=== PATIENT | male | born 1985 | race Caucasian/White ===

== ENCOUNTER 2016-12-02 16:57 | Emergency (ER) | payer OTHER ==
[2016-12-02] MEDS ORDERED: TORAdol 30 mg Injection IM ONE (17:58)
[2016-12-02] MEDS ORDERED: TORAdol 30 mg Injection ONE (17:59)
--- NOTE | 2016-12-02 18:02 | ERPHSYRPT ---
- History of Present Illness Time Seen by Provider: 12/02/16 17:20 Source: patient, family Exam Limitations: other (mental challenged) Patient Subjective Stated Complaint: PT STATES THIS MORNING HE BEGAN HAVING PAIN IN HIS RIGHT LOWER MOUTH FROM A TOOTH. Triage Nursing Assessment: PT PINK, WARM, DRY. DENTAL CARIES NOTED TO RIGHT LOWER MOUTH. Timing/Duration: gradual onset Severity: moderate ENT Location: mouth, dental Prearrival Treatment: over the counter meds Modifying Factors: Improves With: activity Associated Symptoms: denies symptoms Allergies/Adverse Reactions: No Known Drug Allergies Allergy (Verified 12/02/16 17:10) Home Medications: Lisinopril 10 mg [Zestril 10 MG] 10 mg PO DAILY 12/02/16 [History] Meloxicam 7.5 mg [Mobic 7.5 MG] 7.5 mg PO DAILY 12/02/16 [History] Hx Tetanus, Diphtheria Vaccination/Date Given: Yes (UP TO DATE) Hx Influenza Vaccination/Date Given: No Hx Pneumococcal Vaccination/Date Given: No Immunizations Up to Date: Yes - Review of Systems Constitutional: No Symptoms Eyes: No Symptoms Ears, Nose, & Throat: Mouth Pain (right lower molar) Respiratory: No Symptoms Cardiac: No Symptoms Abdominal/Gastrointestinal: No Symptoms Musculoskeletal: No Symptoms Skin: No Symptoms Neurological: No Symptoms Psychological: No Symptoms Endocrine: No Symptoms Hematologic/Lymphatic: No Symptoms Immunological/Allergic: No Symptoms - Past Medical History Pertinent Past Medical History: Yes Neurological History: TIA ENT History: No Pertinent History Cardiac History: Hypertension Respiratory History: No Pertinent History Endocrine Medical History: No Pertinent History Musculoskeletal History: No Pertinent History GI Medical History: No Pertinent History History: No Pertinent History Psycho-Social History: Other Male Reproductive Disorders: No Pertinent History Other Medical History: OVERDOSE - Past Surgical History Past Surgical History: Yes Neuro Surgical History: No Pertinent History Cardiac: No Pertinent History Respiratory: No Pertinent History Gastrointestinal: No Pertinent History Genitourinary: No Pertinent History Musculoskeletal: Orthopedic Surgery Male Surgical History: No Pertinent History Other Surgical History: LEFT FOOT. EARS - Social History Smoking Status: Current every day smoker How long have you smoked: 6 Exposure to second hand smoke: Yes Drug Use: none Patient Lives Alone: No - Nursing Vital Signs Nursing Vital Signs: Initial Vital Signs Temperature 98.3 F Temperature Source Oral Pulse Rate 80 Respiratory Rate 18 Blood Pressure 155/89 Pain Intensity 8 - Physical Exam General Appearance: mild distress, other (Pt. appears under the influence of drugs which impair his speech.) Eye Exam: bilateral eye: normal inspection, PERRL, EOMI Ear Exam: bilateral ear: auricle normal, canal normal, TM normal Nasal Exam: normal inspection Throat Exam: pharynx normal, dental tenderness (right lower molar necrosis) Neck Exam: normal inspection, non-tender, supple, full range of motion Cardiovascular/Respiratory Exam: chest non-tender, normal breath sounds, regular rate/rhythm, heart sounds normal Abdominal Exam: non-tender, soft, no organomegaly Neurologic Exam: alert, intoxicated appearance Skin Exam: normal color, warm, dry SpO2 Interpretation: normal SpO2: 100 Oxygen Delivery: Room Air - Course Nursing assessment & vital signs reviewed: Yes - Progress Progress: improved Counseled pt/family regarding: need for follow-up (with dentisit 1 week) - Departure Time of Disposition: 18:00 Departure Disposition: Home Clinical Impression: Necrosis of dental pulp Condition: Stable Critical Care Time: No
[2016-12-02 18:15] VITALS: BP 142/82; PULSE 78; O2SAT 98
== END 2016-12-02 18:15 | disposition home or self-care (01) ==
LOC: ED 16:57
DX: K04.1 Necrosis of pulp (principal)
CPT/HCPCS: 96372; 99282; J1885

== ENCOUNTER 2017-06-24 06:59 | Emergency (ER) | payer OTHER ==
[2017-06-24] MEDS ORDERED: TORAdol 30 mg Injection IM ONE (07:19)
[2017-06-24] MEDS ORDERED: Norflex 60 MG/2 ML IM ONE (07:19)
--- NOTE | 2017-06-24 07:25 | ERPHSYRPT ---
- History of Present Illness Time Seen by Provider: 06/24/17 07:10 Source: patient, family Exam Limitations: no limitations Patient Subjective Stated Complaint: lower back pain for two weeks Triage Nursing Assessment: ambulated to room per self. ambulating slowly. skin w/d, color normal, resp easy. 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; no falls or trauma; no prior hx; no change in bowel movements or urination; no radiation; no paresthesias; no known exposure; no travel; otherwise healthy; no other complaints; no fever Timing/Duration: today (worse), week(s) (2), worse Method of Injury: lifting Quality: aching Back Pain Location: T-spine (lower), lumbar spine (upper), paraspinous muscles ( middle) Severity of Pain-Max: severe Severity of Pain-Current: moderate Modifying Factors: Improves With: immobilization (helps), movement (aggravates) , pain medication (help slightly) Associated Symptoms: lower back pain (upper part), muscle spasms Previous symptoms: no prior history Allergies/Adverse Reactions: No Known Drug Allergies Allergy (Verified 06/24/17 07:09) Hx Tetanus, Diphtheria Vaccination/Date Given: No Hx Influenza Vaccination/Date Given: No Hx Pneumococcal Vaccination/Date Given: No Immunizations Up to Date: No - Review of Systems Constitutional: No Symptoms Eyes: No Symptoms Ears, Nose, & Throat: No Symptoms Respiratory: No Cough, No Cyanosis, No Dyspnea, No Wheezing Cardiac: No Chest Pain, No Palpitations, No Syncope Abdominal/Gastrointestinal: No Abdominal Pain, No Nausea, No Vomiting, No Diarrhea Genitourinary Symptoms: No Symptoms Musculoskeletal: Back Pain, No Neck Pain, No Fall, No Injury (unknown) Skin: No Symptoms Neurological: No Symptoms Psychological: No Symptoms Endocrine: No Symptoms Hematologic/Lymphatic: No Symptoms Immunological/Allergic: No Symptoms - Past Medical History Pertinent Past Medical History: Yes Neurological History: TIA ENT History: No Pertinent History Cardiac History: Hypertension Respiratory History: No Pertinent History Endocrine Medical History: No Pertinent History Musculoskeletal History: No Pertinent History GI Medical History: No Pertinent History History: No Pertinent History Psycho-Social History: Other Male Reproductive Disorders: No Pertinent History Other Medical History: OVERDOSE - Past Surgical History Past Surgical History: Yes Neuro Surgical History: No Pertinent History Cardiac: No Pertinent History Respiratory: No Pertinent History Gastrointestinal: No Pertinent History Genitourinary: No Pertinent History Musculoskeletal: Orthopedic Surgery Male Surgical History: No Pertinent History Other Surgical History: LEFT FOOT. EARS - Social History Smoking Status: Current every day smoker How long have you smoked: 8 Exposure to second hand smoke: No Alcohol Use: Socially Drug Use: none Patient Lives Alone: No - Nursing Vital Signs Nursing Vital Signs: Initial Vital Signs Temperature 99.1 F 06/24/17 07:05 Pulse Rate 82 06/24/17 07:05 Respiratory Rate 16 06/24/17 07:05 Blood Pressure 154/94 06/24/17 07:05 O2 Sat by Pulse Oximetry 100 06/24/17 07:05 Pain Scale Pain Intensity 4 - Physical Exam General Appearance: moderate distress (back pain), alert, thin Eye Exam: PERRL/EOMI, eyes nml inspection, No photophobia Ears, Nose, Throat Exam: normal ENT inspection, TMs normal, pharynx normal, moist mucous membranes Neck Exam: normal inspection, non-tender, supple, full range of motion, No meningismus, No JVD, No limited range of motion Respiratory Exam: normal breath sounds, lungs clear, airway intact, No chest tenderness, No respiratory distress, No wheezing Cardiovascular Exam: regular rate/rhythm, normal heart sounds, normal peripheral pulses, murmur, capillary refill <2 sec Gastrointestinal Exam: soft, normal bowel sounds, No tenderness, No guarding, No pulsatile mass, No rebound, No organomegaly Rectal Exam: deferred Back Exam: normal inspection, normal range of motion (discomfort with flexion), vertebral tenderness (T 10 through L2 midline), muscle spasm (middle), point tenderness (T10-L2), No CVA tenderness, No rash Extremity Exam: normal inspection, normal range of motion, other (straight leg raising bilateral without pain), No cali's sign, No pedal edema Peripheral Pulses: carotid (R): 4+, carotid (L): 4+, femoral (R): 4+, femoral (L ): 4+, dorsalis-pedis (R): 3+, dorsalis-pedis (L): 3+ Neurologic Exam: alert, oriented x 3, cooperative, 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, normal mood/affect, nml cerebellar function, nml station & gait, sensation nml Skin Exam: normal color, warm, dry, No rash SpO2 Interpretation: normal SpO2: 100 Oxygen Delivery: Room Air - Course Nursing assessment & vital signs reviewed: Yes - Radiology Exams T-Spine X-ray Interpretation: Interpreted by me, Negative, No Fracture L-Spine X-ray Interpretation: Interpreted by me, Negative, No Fracture Ordered Tests: Active Orders 24 hr Category Date Time Status LUMBAR COMPLETE (MIN 4 VIEWS) Stat Exams 06/24/17 07:19 Taken THORACIC SPINE (AP,LAT,SWIMM) Stat Exams 06/24/17 07:20 Taken Medication Summary Discontinued Medications Generic Name Dose Route Start Last Admin Trade Name Danica PRN Reason Stop Dose Admin Ketorolac Tromethamine 60 mg 06/24/17 07:19 06/24/17 07:36 Toradol 30 Mg Injection IM 06/24/17 07:20 60 mg STAT ONE Administration Ketorolac Tromethamine Confirm 06/24/17 07:35 Toradol 30 Mg Injection Administered 06/24/17 07:36 Dose 60 mg .ROUTE .STK-MED ONE Orphenadrine Citrate 60 mg 06/24/17 07:19 06/24/17 07:36 Norflex 60 Mg/2 Ml IM 06/24/17 07:20 60 mg STAT ONE Administration Orphenadrine Citrate Confirm 06/24/17 07:35 Norflex 60 Mg/2 Ml Administered 06/24/17 07:36 Dose 60 mg .ROUTE .STK-MED ONE - Progress Progress: improved (after meds), re-examined (after x-ray and medicati) Progress Note: 06/24/17 07:25 family at bedside; pain medicine given; x-ray pending; will recheck treatment plan discussed 06/24/17 07:53 rechecked - meds just given; xr done; results pending; will recheck ; family at bedside 06/24/17 08:09 rechecked; pain now 4/6 and improving; treatment plan and instructions given Counseled pt/family regarding: diagnosis, need for follow-up, rad results, smoking cessation - Departure Time of Disposition: 08:10 Departure Disposition: Home Clinical Impression: Back strain Condition: Stable Critical Care Time: No Critical Care Time(excluding separately billable procedures): 30-74 minutes Instructions: Low Back Pain Additional Instructions: rest; no heavy lifting or straining 48 hours; follow up lmd recheck take meds Back pain instructions. Rest, ice x 24-48 hours, then warm compresses; no heavy lifting (>20#'s) x 3-5 days; call [facility] or [facility] Med doctor in am for follow up appointment and or referral as needed. Return if problems. Take meds as prescribed. Follow-up with family doctor as directed. Call for appointment. Return if any problems. If you smoke please stop. Call or follow up with your family doctor for assistance if you need it to stop. Please wear your seatbelt when driving. Have a nice day. Thank you for allowing us to participate in your care today. :o) Dr Johnny Ag Prescriptions: Chlorzoxazone [Parafon Forte Dsc] 500 mg PO QID #20 tablet Naproxen Sodium [Anaprox Ds] 550 mg PO TID #14 tablet
[2017-06-24] MEDS ORDERED: TORAdol 30 mg Injection ONE (07:35)
[2017-06-24] MEDS ORDERED: Norflex 60 MG/2 ML ONE (07:35)
[2017-06-24 08:28] VITALS: BP 146/90; PULSE 68; O2SAT 97
--- NOTE | 2017-06-24 09:00 | XRAY ---
Indication: Back pain. Comparison: December 01, 2016. 5 views of the lumbar spine demonstrates 6 lumbar segments with sacralized L6, mild L5-L6, and mild bilateral L5-L6 degenerative facet arthropathy. Negative for acute fracture, subluxation, or pars interarticularis defect.
--- NOTE | 2017-06-24 09:03 | XRAY ---
Indication: Back pain. Muscle spasms. Comparison: None Frontal/lateral thoracic spine demonstrates 12 typical rib-bearing thoracic vertebral segments with minimal levoscoliosis centered at T10. No other bony, articular, or soft tissue abnormalities.
== END 2017-06-24 08:27 | disposition home or self-care (01) ==
LOC: ED 06:59
DX: S39.012A Strain of muscle, fascia and tendon of lower back, initial encounter (principal); X50.0XXA Overexertion from strenuous movement or load, initial encounter; Y93.H3 Activity, building and construction
CPT/HCPCS: 72072; 72110; 96372; 99284; J1885; J2360

== ENCOUNTER 2017-07-15 05:54 | Emergency (ER) | payer OTHER ==
[2017-07-15 06:02] VITALS: BP 151/97; PULSE 102; O2SAT 99
[2017-07-15] MEDS ORDERED: KEFLEX 500 MG PO ONE (06:07)
[2017-07-15] MEDS ORDERED: NORCO 5/325 MG PO ONE ×2 (06:08)
[2017-07-15] MEDS ORDERED: KEFLEX 500 MG ONE (06:12)
[2017-07-15] MEDS ORDERED: NORCO 5/325 MG ONE ×2 (06:13→06:14)
--- NOTE | 2017-07-15 06:14 | ERPHSYRPT ---
- History of Present Illness Time Seen by Provider: 07/15/17 06:04 Source: patient Exam Limitations: no limitations Patient Subjective Stated Complaint: toothache Triage Nursing Assessment: right side back tooth abscessed , no other complaints patient ambualtes well, gait is steady, alert and oriented x3, skin clean white and intact. lung sounds clear, pulses equal pedal and bilateral radius Physician History: FOR THE PAST 4 HOURS PT HAS HAD A RIGHT LOWER TOOTHACHE; DENIES FEVER, NAUSEA, VOMITING, CHEST PAIN. Allergies/Adverse Reactions: No Known Drug Allergies Allergy (Verified 06/24/17 07:09) Hx Tetanus, Diphtheria Vaccination/Date Given: Yes Hx Influenza Vaccination/Date Given: No Hx Pneumococcal Vaccination/Date Given: No Immunizations Up to Date: Yes - Review of Systems Constitutional: No Fever Ears, Nose, & Throat: Mouth Pain Cardiac: No Chest Pain Abdominal/Gastrointestinal: No Nausea, No Vomiting All Other Systems: Reviewed and Negative - Past Medical History Pertinent Past Medical History: Yes Neurological History: TIA ENT History: No Pertinent History Cardiac History: Hypertension Respiratory History: No Pertinent History Endocrine Medical History: No Pertinent History Musculoskeletal History: No Pertinent History GI Medical History: No Pertinent History History: No Pertinent History Psycho-Social History: Other Male Reproductive Disorders: No Pertinent History Other Medical History: OVERDOSE - Past Surgical History Past Surgical History: Yes Neuro Surgical History: No Pertinent History Cardiac: No Pertinent History Respiratory: No Pertinent History Gastrointestinal: No Pertinent History Genitourinary: No Pertinent History Musculoskeletal: Orthopedic Surgery Male Surgical History: No Pertinent History Other Surgical History: LEFT FOOT. EARS - Social History Smoking Status: Current some day smoker How long have you smoked: 8 Exposure to second hand smoke: No Alcohol Use: Socially Drug Use: none Patient Lives Alone: No - Nursing Vital Signs Nursing Vital Signs: Initial Vital Signs Temperature 98.4 F 07/15/17 05:54 Pulse Rate 102 H 07/15/17 05:54 Respiratory Rate 18 07/15/17 05:54 Blood Pressure 151/97 07/15/17 05:54 O2 Sat by Pulse Oximetry 99 07/15/17 05:54 Pain Scale Pain Intensity 10 - Physical Exam General Appearance: alert Eye Exam: bilateral eye: PERRL, EOMI Ear Exam: bilateral ear: TM normal Nasal Exam: normal inspection Throat Exam: pharynx normal, mandibular swelling (MILD TENDERNESS, EDEMA AND ERYTHEMA OF THE GUM SURROUNDING A RIGHT MANDIBULAR MOLAR.) Neck Exam: normal inspection, full range of motion Cardiovascular/Respiratory Exam: normal breath sounds, heart sounds normal Abdominal Exam: soft (B.S. NORMAL) Neurologic Exam: alert, cooperative Skin Exam: warm, dry SpO2 Interpretation: normal SpO2: 99 Oxygen Delivery: Room Air - Course Nursing assessment & vital signs reviewed: Yes Ordered Tests: Medication Summary Generic Name Dose Route Start Last Admin Trade Name Freq PRN Reason Stop Dose Admin Hydrocodone Bitart/Acetaminophen 2 tab 07/15/17 06:08 [place] 5/325 Mg PO 07/15/17 06:09 STAT ONE Discontinued Medications Generic Name Dose Route Start Last Admin Trade Name Freq PRN Reason Stop Dose Admin Cephalexin HCl 500 mg 07/15/17 06:07 Keflex 500 Mg PO 07/15/17 06:08 STAT ONE - Departure Time of Disposition: 06:16 Departure Disposition: Home Clinical Impression: TOOTH ABSCESS Condition: Stable Critical Care Time: No Referrals: BRIDGETTE SHORT [Primary Care Provider] - Instructions: Tooth Abscess Additional Instructions: FOLLOW UP WITH PRIVATE DENTIST Prescriptions: Naproxen [Naprosyn] 500 mg PO Q12H PRN PRN #20 tablet PRN Reason: Pain Cephalexin Monohydrate [Keflex] 500 mg PO TID #30 capsule
== END 2017-07-15 06:31 | disposition home or self-care (01) ==
LOC: ED 05:54
DX: K04.7 Periapical abscess without sinus (principal)
CPT/HCPCS: 99283; A9270-GY

== ENCOUNTER 2017-07-17 20:16 | Emergency (ER) | payer OTHER ==
--- NOTE | 2017-07-17 20:42 | ERPHSYRPT ---
- History of Present Illness Time Seen by Provider: 07/17/17 20:36 Source: patient Exam Limitations: no limitations Physician History: pt was seen 2 days ago for right lower toothache but is reacting to keflex with vomiting ; mouth and neck supple and nontender without swelling and swallowing OK in ER; abd nontender percusion of right lower molar reproduces pain each time; Timing/Duration: persistent, days Severity: moderate ENT Location: dental Prearrival Treatment: prescription meds Modifying Factors: Improves With: nothing Associated Symptoms: tooth pain, No cough, No drooling, No difficulty swallowing , No voice change Allergies/Adverse Reactions: No Known Drug Allergies Allergy (Verified 06/24/17 07:09) Hx Tetanus, Diphtheria Vaccination/Date Given: Yes Hx Influenza Vaccination/Date Given: No Hx Pneumococcal Vaccination/Date Given: No - Review of Systems Constitutional: No Fever, No Chills Eyes: No Symptoms Ears, Nose, & Throat: Other (tooth ppain) Respiratory: No Cough, No Dyspnea Cardiac: No Chest Pain, No Edema, No Syncope Abdominal/Gastrointestinal: Nausea, Vomiting, No Abdominal Pain, No Diarrhea Genitourinary Symptoms: No Dysuria Musculoskeletal: No Back Pain, No Neck Pain Skin: No Rash Neurological: No Dizziness, No Focal Weakness, No Sensory Changes Psychological: No Symptoms Endocrine: No Symptoms All Other Systems: Reviewed and Negative - Past Medical History Pertinent Past Medical History: Yes Neurological History: TIA ENT History: No Pertinent History Cardiac History: Hypertension Respiratory History: No Pertinent History Endocrine Medical History: No Pertinent History Musculoskeletal History: No Pertinent History GI Medical History: No Pertinent History History: No Pertinent History Psycho-Social History: Other Male Reproductive Disorders: No Pertinent History Other Medical History: OVERDOSE - Past Surgical History Past Surgical History: Yes Neuro Surgical History: No Pertinent History Cardiac: No Pertinent History Respiratory: No Pertinent History Gastrointestinal: No Pertinent History Genitourinary: No Pertinent History Musculoskeletal: Orthopedic Surgery Male Surgical History: No Pertinent History Other Surgical History: LEFT FOOT. EARS - Social History Smoking Status: Current some day smoker How long have you smoked: 8 Exposure to second hand smoke: No Alcohol Use: Socially Drug Use: none Patient Lives Alone: No - Nursing Vital Signs Nursing Vital Signs: Initial Vital Signs Temperature 98 F 07/17/17 20:25 Pulse Rate 86 07/17/17 20:25 Respiratory Rate 16 07/17/17 20:25 Blood Pressure 162/80 07/17/17 20:25 O2 Sat by Pulse Oximetry 98 07/17/17 20:25 Pain Scale Pain Intensity 9 - Physical Exam General Appearance: no apparent distress, alert Eye Exam: bilateral eye: PERRL, EOMI Nasal Exam: normal inspection Throat Exam: pharynx normal, dental tenderness, moist mucus membranes, No excessive drooling, No mandibular swelling, No maxillary swelling, No pharynx swelling, No pharynx tenderness, No tongue swollen, No tonsillar exudate, No tonsillar swelling, No trismus, No uvula swelling, No voice changes Neck Exam: non-tender, supple, trachea midline Cardiovascular/Respiratory Exam: normal breath sounds, regular rate/rhythm Abdominal Exam: non-tender, soft Neurologic Exam: alert, oriented x 3, sensation nml, No motor deficits Skin Exam: normal color, warm, dry SpO2: 98 Oxygen Delivery: Room Air - Course Nursing assessment & vital signs reviewed: Yes - Progress Progress: improved, re-examined Counseled pt/family regarding: diagnosis, need for follow-up - Departure Time of Disposition: 20:41 Departure Disposition: Home Clinical Impression: Dental abscess Condition: Good Critical Care Time: No Referrals: BRIDGETTE SHORT [Primary Care Provider] - Instructions: Tooth Decay, Tooth Abscess Additional Instructions: see your dentist this week to work on tooth; return meantime if not improving, vomiting, fever, trouble swallowing, swelling or other concerns. Prescriptions: Amoxicillin/Potassium Clav [Augmentin 875-125 Tablet] 875 mg PO BID #20 tablet Hydrocodone/Acetaminophen [[place] 5-325 Tablet] 1 each PO Q4-6HPRN PRN #14 tablet PRN Reason: Pain
[2017-07-17] MEDS ORDERED: Augmentin 875-125 Tablet PO ONE (20:46)
[2017-07-17] MEDS ORDERED: NORCO 5/325 MG PO ONE (20:46)
[2017-07-17] MEDS ORDERED: Augmentin 875-125 Tablet ONE (20:49)
[2017-07-17] MEDS ORDERED: NORCO 5/325 MG ONE (20:50)
[2017-07-17 21:08] VITALS: BP 155/90; PULSE 80; O2SAT 99
== END 2017-07-17 21:08 | disposition home or self-care (01) ==
LOC: ED 20:16
DX: K04.7 Periapical abscess without sinus (principal)
CPT/HCPCS: 99283; A9270-GY

== ENCOUNTER 2017-08-12 04:18 | Emergency (ER) | payer OTHER ==
[2017-08-12 04:30] VITALS: O2SAT 94
--- NOTE | 2017-08-12 04:40 | ERPHSYRPT ---
- History of Present Illness Time Seen by Provider: 08/12/17 04:33 Source: patient Exam Limitations: no limitations Patient Subjective Stated Complaint: pt states he has been coughing for a week and states it has been getting worse. c/o pain in back that is worse with a deep breath. Triage Nursing Assessment: pt awake and alert, answers questions approp. speech slurred, strong smell of etoh from pt. pt ambultory with steady gait ntoed. respirations nonlabored with lungs cta. frequent hacking cough noted. pt denies chest pain, sob. Physician History: 32-year-old white male states he's been having a cough for 2 weeks states he feels short of breath. No fevers no vomiting no diarrhea. Pain in his back with coughing. Past medical history includes TIA, high blood pressure, overdose. Past surgical history includes left foot surgery and ear surgery. Social history positive for tobacco use. Patient states he drank a pint of alcohol tonight. Timing/Duration: week(s) (2 weeks) Activities at Onset: none Severity of Dyspnea-Max: moderate Severity of Dyspnea-Current: moderate Possible Cause: occasional episodes Associated Symptoms: cough, chest pain/discomfort (pain in back with coughing), productive cough, No anxiety, No edema, No fever, No insomnia, No loss of appetite, No lightheadedness, No wheezing, No weakness, No ankle swelling, No chills, No hemoptysis, No calf pain, No dizziness, No heaviness, No heart racing , No lightheadedness, No leg swelling, No muscle spasms feet, No muscle spasms hands, No painful breathing, No sweating, No tightness, No tingling face International travel in last 2 weeks: No Allergies/Adverse Reactions: No Known Drug Allergies Allergy (Verified 08/12/17 04:31) Hx Tetanus, Diphtheria Vaccination/Date Given: Yes Hx Influenza Vaccination/Date Given: No Hx Pneumococcal Vaccination/Date Given: No Immunizations Up to Date: Yes - Review of Systems Constitutional: No Fever, No Chills Eyes: No Symptoms Ears, Nose, & Throat: No Symptoms Respiratory: Cough, Dyspnea, No Cyanosis, No Dyspnea on Exertion ([place]), No Stridor, No Wheezing Cardiac: Other (pain in back with coughing), No Chest Pain, No Edema, No Syncope Abdominal/Gastrointestinal: No Abdominal Pain, No Nausea, No Vomiting, No Diarrhea Genitourinary Symptoms: No Dysuria Musculoskeletal: No Back Pain, No Neck Pain Skin: No Rash Neurological: No Dizziness, No Focal Weakness, No Sensory Changes Psychological: No Symptoms Endocrine: No Symptoms All Other Systems: Reviewed and Negative - Past Medical History Pertinent Past Medical History: Yes Neurological History: TIA ENT History: No Pertinent History Cardiac History: Hypertension Respiratory History: No Pertinent History Endocrine Medical History: No Pertinent History Musculoskeletal History: No Pertinent History GI Medical History: No Pertinent History History: No Pertinent History Psycho-Social History: Other Male Reproductive Disorders: No Pertinent History Other Medical History: OVERDOSE - Past Surgical History Past Surgical History: Yes Neuro Surgical History: No Pertinent History Cardiac: No Pertinent History Respiratory: No Pertinent History Gastrointestinal: No Pertinent History Genitourinary: No Pertinent History Musculoskeletal: Orthopedic Surgery Male Surgical History: No Pertinent History Other Surgical History: LEFT FOOT. EARS - Social History Smoking Status: Current every day smoker How long have you smoked: 8 Exposure to second hand smoke: No Alcohol Use: Socially Drug Use: none Patient Lives Alone: No - Nursing Vital Signs Nursing Vital Signs: Initial Vital Signs Temperature 97.3 F 08/12/17 04:23 Pulse Rate 93 H 08/12/17 04:23 Respiratory Rate 20 08/12/17 04:23 Blood Pressure 136/78 08/12/17 04:23 O2 Sat by Pulse Oximetry 94 L 08/12/17 04:23 Pain Scale Pain Intensity 6 - Physical Exam General Appearance: other (well-developed well-nourished white male somewhat flushed in appearance alert and oriented 3) Eye Exam: PERRL/EOMI Ears, Nose, Throat Exam: hearing grossly normal, normal ENT inspection, normal pharynx Neck Exam: normal inspection, non-tender, supple Respiratory Exam: other (lungs occasional wheeze otherwise clear) Cardiovascular/Chest Exam: normal heart sounds, regular rate/rhythm Abdominal/Gastrointestinal Exam: soft, No tenderness, No distention, No mass Extremity Exam: non-tender, normal range of motion, normal inspection, no calf tenderness, no pedal edema Peripheral Pulses Exam: dorsalis-pedis (R): 2+, dorsalis-pedis (L): 2+ Neurologic Exam: alert, oriented x 3, cooperative, pin setter II-XII nml as tested Skin Exam: other (somewhat flushed in appearance) SpO2 Interpretation: normal (94%) SpO2: 94 Oxygen Delivery: Room Air - Course Nursing assessment & vital signs reviewed: Yes EKG Interpreted by Me: RATE (86 bpm), Sinus Rhythm, NORMAL AXIS, Other (EKG: Sinus rhythm 86 bpm normal axis no acute ST or T wave changes essentially normal EKG) - Radiology Exams Chest X-ray Interpretation: Interpreted by me, Negative, No Pneumonia, No Pneumothorax Ordered Tests: Active Orders 24 hr Category Date Time Status EKG-ER Only STAT Care 08/12/17 05:00 Active CHEST 1 VIEW (PORTABLE) Stat Exams 08/12/17 04:43 Taken Respiratory Nebulizer STAT RT 08/12/17 05:00 Completed Medication Summary Discontinued Medications Generic Name Dose Route Start Last Admin Trade Name Freq PRN Reason Stop Dose Admin Albuterol/Ipratropium 3 ml 08/12/17 05:00 08/12/17 05:11 Duoneb 0.5-3 Mg/3 Ml Neb IH 08/12/17 05:01 3 ml STAT ONE Administration Albuterol/Ipratropium Confirm 08/12/17 05:09 Duoneb 0.5-3 Mg/3 Ml Neb Administered 08/12/17 05:10 Dose 3 ml IH .STK-MED ONE Azithromycin 500 mg 08/12/17 05:07 Zithromax 250 Mg Tablet PO 08/12/17 05:08 STAT ONE - Progress Progress: improved Air Movement: fair Progress Note: 08/12/17 04:39 32-year-old white male arrives with complaint of cough for 2 weeks he states he' s been having pain in his back with coughing he has had a productive cough. On arrival patient is alert he has a small similar to alcohol about his presence and he admits to drinking a pint of alcohol. He is however alert and oriented 3.. Will go ahead and obtain chest x-ray on this patient. 08/12/17 05:00 Chest x-ray no acute disease process noted. Patient does have bilateral wheezes on recheck. Will obtain EKG provide DuoNeb. Anticipate home with Zithromax, albuterol inhaler and prednisone 08/12/17 05:33 Patient feeling better. Wheezing is diminished. Will discharge - Departure Time of Disposition: 05:34 Departure Disposition: Home Clinical Impression: Bronchitis, Bronchospasm Condition: Fair Critical Care Time: No Referrals: BRIDGETTE SHORT [Primary Care Provider] - Additional Instructions: Return home. Plenty of fluids. Zithromax albuterol prednisone as directed. No driving today no more drinking today. Quit smoking. Tylenol every 4 hours as needed for pain. Follow-up with your family doctor if symptoms are worse, no better in 48 hours, or persist longer than one week. Return for acute distress or for severe symptoms. Prescriptions: Albuterol Common Canister [Proventil Common Canister] 2 puff IH Q4-6HPRN PRN #1 puff PRN Reason: shortness of breath, wheezing Azithromycin 250 mg [Zithromax 250 MG TABLET] 0 mg PO ZPACK #6 tablet
[2017-08-12] MEDS ORDERED: DUONEB 0.5-3 MG/3 ml Neb IH ONE ×2 (05:00→05:09)
[2017-08-12] MEDS ORDERED: Zithromax 250 MG TABLET PO ONE (05:07)
[2017-08-12 05:29] VITALS: BP 137/73; PULSE 94
[2017-08-12] MEDS ORDERED: Zithromax 250 MG TABLET ONE (05:31)
--- NOTE | 2017-08-12 09:31 | XRAY ---
Indication: Cough, congestion, short of breath. Comparison: April 29, 2015. Portable chest demonstrates new left base infiltrate and tiny effusion. Remaining heart, lungs, and bony thorax normal. Comment: Left lung findings not reported by interpreting ER clinician. I gave telephone report to Dr. Keller in the ER at 0925 hrs. on August 12, 2017.
== END 2017-08-12 05:43 | disposition home or self-care (01) ==
LOC: ED 04:18
DX: J40 Bronchitis, not specified as acute or chronic (principal); J98.01 Acute bronchospasm; I10 Essential (primary) hypertension
CPT/HCPCS: 71010; 93005; 94640; 99284; A9270-GY

== ENCOUNTER 2018-01-29 10:28 | Emergency (ER) | payer OTHER ==
[2018-01-29 10:55] VITALS: PULSE 100; O2SAT 99
[2018-01-29 11:25] VITALS: BP 134/89
--- NOTE | 2018-01-29 11:25 | ERPHSYRPT ---
- History of Present Illness Time Seen by Provider: 01/29/18 11:12 Source: patient Exam Limitations: no limitations Patient Subjective Stated Complaint: pt co possible abcess on l buttocks x1 week. Triage Nursing Assessment: red, swollen area noted to l buttocks; non draining; pt a&o x3; skin p, w, and d; ambulated to room per self; no other distress or discomfort noted at this time. Physician History: The patient is a 32-year-old male complaining of increasing pain, redness, swelling on his left buttock for one week. A small open area in the center has drained a scant amount of yellow fluid. His never had anything like this before. Past medical history is unremarkable. Timing/Duration: week(s) (1), gradual onset Quality: burning, painful Severity: moderate Location: other (left buttock) Possible Causes: no cause identified Allergies/Adverse Reactions: No Known Drug Allergies Allergy (Verified 08/12/17 04:31) Hx Tetanus, Diphtheria Vaccination/Date Given: Yes Hx Influenza Vaccination/Date Given: No Hx Pneumococcal Vaccination/Date Given: No Immunizations Up to Date: No - Review of Systems Constitutional: No Fever Eyes: No Symptoms Ears, Nose, & Throat: No Symptoms Respiratory: No Cough, No Dyspnea Cardiac: No Chest Pain, No Edema, No Syncope Abdominal/Gastrointestinal: No Abdominal Pain, No Nausea, No Vomiting, No Diarrhea Genitourinary Symptoms: No Dysuria Musculoskeletal: No Back Pain, No Neck Pain Skin: Cellulitis, Skin Lesions Neurological: No Dizziness, No Focal Weakness, No Sensory Changes Psychological: No Symptoms Endocrine: No Symptoms Hematologic/Lymphatic: No Symptoms Immunological/Allergic: No Symptoms All Other Systems: Reviewed and Negative - Past Medical History Pertinent Past Medical History: Yes Neurological History: TIA ENT History: No Pertinent History Cardiac History: Hypertension Respiratory History: No Pertinent History Endocrine Medical History: No Pertinent History Musculoskeletal History: No Pertinent History GI Medical History: No Pertinent History History: No Pertinent History Psycho-Social History: Other Male Reproductive Disorders: No Pertinent History Other Medical History: OVERDOSE - Past Surgical History Past Surgical History: Yes Neuro Surgical History: No Pertinent History Cardiac: No Pertinent History Respiratory: No Pertinent History Gastrointestinal: No Pertinent History Genitourinary: No Pertinent History Musculoskeletal: Orthopedic Surgery Male Surgical History: No Pertinent History Other Surgical History: LEFT FOOT. EARS - Social History Smoking Status: Current every day smoker How long have you smoked: 8 years Exposure to second hand smoke: No Alcohol Use: Socially Drug Use: none Patient Lives Alone: No - Nursing Vital Signs Nursing Vital Signs: Initial Vital Signs Temperature 98.7 F 01/29/18 10:35 Pulse Rate 100 H 01/29/18 10:35 Respiratory Rate 16 01/29/18 10:35 Blood Pressure 149/83 01/29/18 10:35 O2 Sat by Pulse Oximetry 99 01/29/18 10:35 Pain Scale Pain Intensity 9 - Physical Exam General Appearance: mild distress Eye Exam: PERRL/EOMI, eyes nml inspection Ears, Nose, Throat Exam: normal ENT inspection, pharynx normal, moist mucous membranes Neck Exam: normal inspection, non-tender, supple, full range of motion Respiratory Exam: normal breath sounds, lungs clear, No respiratory distress Cardiovascular Exam: regular rate/rhythm, normal heart sounds Gastrointestinal/Abdomen Exam: soft, mass, No tenderness Rectal Exam: not done Back Exam: normal inspection, normal range of motion, No CVA tenderness, No vertebral tenderness Extremity Exam: normal inspection, normal range of motion Neurologic Exam: alert, oriented x 3, cooperative, normal mood/affect, sensation nml, No motor deficits Skin Exam: rash (Examination of the left buttocks shows a large circular red warm rash of approximately 10 cm in diameter with a small healing wound in the center. The area is tender to palpation.) SpO2 Interpretation: normal SpO2: 99 Oxygen Delivery: Room Air - Progress Progress: unchanged Counseled pt/family regarding: diagnosis - Departure Time of Disposition: 11:29 Departure Disposition: Home Clinical Impression: Cellulitis Condition: Stable Critical Care Time: No Referrals: BRIDGETTE SHORT [Primary Care Provider] - Additional Instructions: You have cellulitis with early abscess formation. At this time the abscess was not ready to be drained. Take clindamycin 300 mg 3 times a day for 10 days. Take Tylenol No. 3 one tablet every 4-6 hours as needed for pain. May also take ibuprofen 800 mg every 8 hours as needed. Follow-up on Wednesday if the condition worsens. Prescriptions: Clindamycin HCl 1 cap PO TID #30 capsule Codeine Phosphate/APAP #3 [Tylenol #3 Tablet] 1 tab PO Q4-6HPRN PRN #10 tablet PRN Reason: Pain
== END 2018-01-29 11:42 | disposition home or self-care (01) ==
LOC: ED 10:28
DX: L03.317 Cellulitis of buttock (principal); L02.31 Cutaneous abscess of buttock; I10 Essential (primary) hypertension; Z86.73 Personal history of transient ischemic attack (TIA), and cerebral infarction without residual deficits; Z72.0 Tobacco use
CPT/HCPCS: 99281

== ENCOUNTER 2019-11-04 01:39 | Emergency (ER) | payer MEDICAID, OTHER ==
--- NOTE | 2019-11-04 02:31 | ERPHSYRPT ---
- History of Present Illness Time Seen by Provider: 11/04/19 02:15 Source: patient Exam Limitations: no limitations Patient Subjective Stated Complaint: pt states, "my left ear started hurting tonight around 2230, lots of pain, which is sharp, some ringing in my ears and having trouble hearing out of it". Triage Nursing Assessment: pt c/o karin pain to lt ear, followed by ringing in his ears, and having difficulty hearing out of lt ear. Lt ear appears red, no drainage noted and pt denies any drainage. Physician History: 34 y/o white male presents with left earache that began at 2230 Timing/Duration: abrupt onset Severity: moderate ENT Location: ear (L) Prearrival Treatment: no prearrival treatment (tylenol at 2230) Associated Symptoms: ear pain (L), No ear drainage, No sinus infection, No sore throat, No tooth pain Allergies/Adverse Reactions: No Known Drug Allergies Allergy (Verified 08/12/17 04:31) Hx Tetanus, Diphtheria Vaccination/Date Given: Yes Hx Influenza Vaccination/Date Given: No Hx Pneumococcal Vaccination/Date Given: No Immunizations Up to Date: Yes - Review of Systems Constitutional: No Symptoms Eyes: No Symptoms Ears, Nose, & Throat: Ear Pain (left), No Ear Discharge Respiratory: No Symptoms Cardiac: No Symptoms Abdominal/Gastrointestinal: No Symptoms Genitourinary Symptoms: No Symptoms Musculoskeletal: No Symptoms Skin: No Symptoms Neurological: No Symptoms Psychological: No Symptoms Endocrine: No Symptoms Hematologic/Lymphatic: No Symptoms Immunological/Allergic: No Symptoms All Other Systems: Reviewed and Negative - Past Medical History Pertinent Past Medical History: Yes Neurological History: TIA ENT History: Other Cardiac History: Hypertension Respiratory History: No Pertinent History Endocrine Medical History: No Pertinent History Musculoskeletal History: No Pertinent History GI Medical History: No Pertinent History History: No Pertinent History Psycho-Social History: Other Male Reproductive Disorders: No Pertinent History 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 EARS - Social History Smoking Status: Current every day smoker How long have you smoked: 9 yrs Exposure to second hand smoke: Yes Alcohol Use: Socially Drug Use: none Patient Lives Alone: No - Nursing Vital Signs Nursing Vital Signs: Initial Vital Signs Temperature 97.4 F 11/04/19 01:50 Pulse Rate 75 11/04/19 01:50 Respiratory Rate 17 11/04/19 01:50 Blood Pressure 162/101 11/04/19 01:50 O2 Sat by Pulse Oximetry 100 11/04/19 01:50 Pain Scale Pain Intensity 9 - Physical Exam General Appearance: mild distress, alert, anxiety Eye Exam: bilateral eye: normal inspection, PERRL, EOMI Ear Exam: left ear: swelling, tenderness, TM red, bilateral ear: auricle normal Nasal Exam: normal inspection Throat Exam: normal, pharynx normal, No dental tenderness Neck Exam: normal inspection, non-tender, supple, full range of motion Cardiovascular/Respiratory Exam: no respiratory distress, No chest non-tender Abdominal Exam: non-tender Skin Exam: normal color, warm, dry SpO2 Interpretation: normal SpO2: 100 O2 Delivery: Room Air - Course Nursing assessment & vital signs reviewed: Yes - Progress Counseled pt/family regarding: diagnosis, need for follow-up - Departure Departure Disposition: Home Clinical Impression: Left otitis media Condition: Stable Critical Care Time: No Referrals: BRIDGETTE SHORT [Primary Care Provider] - Additional Instructions: add ibuprofen for pain Prescriptions: Hydrocodone/APAP 5-325 Tab^^^ [[place] 5-325 Tablet^^^] 1 tab PO Q8H PRN PRN #6 tablet MDD 63 PRN Reason: Pain Amoxicillin 500 mg Cap [Amoxil 500 mg] 500 mg PO TID #30 capsule
[2019-11-04] MEDS ORDERED: AMOXIL 500 MG PO ONE (02:32)
[2019-11-04] MEDS ORDERED: NORCO 5/325 MG PO ONE (02:32)
[2019-11-04] MEDS ORDERED: MOTRIN 600 MG PO ONE (02:33)
[2019-11-04] MEDS ORDERED: MOTRIN 600 MG ONE (02:43)
[2019-11-04] MEDS ORDERED: NORCO 5/325 MG ONE (02:43)
[2019-11-04] MEDS ORDERED: AMOXIL 500 MG ONE (02:44)
[2019-11-04 03:01] VITALS: BP 154/105; PULSE 79; O2SAT 99
== END 2019-11-04 03:02 | disposition home or self-care (01) ==
LOC: ED 01:39
DX: H66.92 Otitis media, unspecified, left ear (principal)
CPT/HCPCS: 99283; A9270-GY

== ENCOUNTER 2020-03-28 23:31 | Emergency (ER) | payer OTHER ==
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
[2020-03-29 01:49] VITALS: BP 132/74; PULSE 84; O2SAT 97
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
== END 2020-03-29 01:40 | disposition home or self-care (01) ==
LOC: ED 23:31
DX: S00.202A Unspecified superficial injury of left eyelid and periocular area, initial encounter (principal); Y04.0XXA Assault by unarmed brawl or fight, initial encounter; Y93.89 Activity, other specified; Y92.89 Other specified places as the place of occurrence of the external cause; I10 Essential (primary) hypertension; Z86.73 Personal history of transient ischemic attack (TIA), and cerebral infarction without residual deficits; Z72.0 Tobacco use
CPT/HCPCS: 70480; 99283

== ENCOUNTER 2020-08-09 20:51 | Emergency (ER) | payer OTHER ==
--- NOTE | 2020-08-09 20:54 | ERPHSYRPT ---
- History of Present Illness Time Seen by Provider: 08/09/20 20:53 Source: patient Exam Limitations: no limitations Physician History: This is a 35-year-old right-handed male who has no known drug allergies and is unaware when his last tetanus immunization was and presents with right hand injury. Patient was working on his riding lawnmower when the fan that he was working on suddenly began working. his right hand was caught in the circulating fan. Occurred: just prior to arrival Method of Injury: other (Circulating fan from engine of a riding lawnmower) Quality: aching Severity of Pain-Max: moderate Severity of Pain-Current: moderate Extremities Pain Location: hand: right Modifying Factors: Improves With: movement Associated Symptoms: none Allergies/Adverse Reactions: No Known Drug Allergies Allergy (Verified 08/09/20 21:01) Hx Tetanus, Diphtheria Vaccination/Date Given: Yes Hx Influenza Vaccination/Date Given: No Hx Pneumococcal Vaccination/Date Given: No Travel Risk - International Travel Have you traveled outside of the country in past 3 weeks: No - Coronavirus Screening Are you exhibiting any of the following symptoms?: No Close contact with a COVID-19 positive Pt in past 14-21 Days: No - Review of Systems Constitutional: No Symptoms Eyes: No Symptoms Ears, Nose, & Throat: No Symptoms Respiratory: No Symptoms Cardiac: No Symptoms Abdominal/Gastrointestinal: No Symptoms Genitourinary Symptoms: No Symptoms Musculoskeletal: Injury (Right hand) Skin: Other (Full abrasions of the right hand.) Neurological: No Symptoms Psychological: No Symptoms Endocrine: No Symptoms Hematologic/Lymphatic: No Symptoms Immunological/Allergic: No Symptoms All Other Systems: Reviewed and Negative - Past Medical History Pertinent Past Medical History: Yes Neurological History: No Pertinent History, TIA ENT History: Other Cardiac History: Hypertension Respiratory History: No Pertinent History Endocrine Medical History: No Pertinent History Musculoskeletal History: No Pertinent History GI Medical History: No Pertinent History History: No Pertinent History Psycho-Social History: Other Male Reproductive Disorders: No Pertinent History 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 EARS - Social History Smoking Status: Current every day smoker How long have you smoked: 11 yrs Exposure to second hand smoke: Yes Alcohol Use: Socially Drug Use: none Patient Lives Alone: No - Nursing Vital Signs Nursing Vital Signs: Initial Vital Signs Temperature 97.8 F 08/09/20 21:01 Pulse Rate 97 H 08/09/20 21:01 Respiratory Rate 16 08/09/20 21:01 Blood Pressure 154/92 08/09/20 21:01 O2 Sat by Pulse Oximetry 98 08/09/20 21:01 Pain Scale Pain Intensity 6 - Physical Exam General Appearance: no apparent distress, alert, anxiety Eyes, Ears, Nose, Throat Exam: normal ENT inspection, moist mucous membranes Neck Exam: normal inspection, non-tender, supple, full range of motion Cardiovascular/Respiratory Exam: chest non-tender Abdominal Exam: non-tender Back Exam: normal inspection, normal range of motion, No CVA tenderness, No vertebral tenderness Shoulder Exam: normal inspection, non-tender, no evidence of injury, normal ROM Elbow/Forearm Exam: normal inspection, non-tender, no evidence of injury, normal ROM Wrist Exam: normal inspection, non-tender, no evidence of injury, normal ROM Hand Exam: normal ROM (Exam is on the right hand.), abrasions, soft tissue tenderness, stiffness (Right hand with multiple abrasions dorsal aspect. Patient's right hand is very dirty with grease from working in the motor of his riding lawnmower. Patient is neurovascularly intact. There is no evidence of tendon injury. He has normal range of motion.) Neuro/Tendon Exam: normal sensation, normal motor functions, normal tendon functions, no evidence tendon injury Mental Status Exam: alert, oriented x 3, cooperative Skin Exam: abrasion (Hand), other (Ready from the motor grease that he was working on) SpO2 Interpretation: normal O2 Delivery: Room Air - Course Nursing assessment & vital signs reviewed: Yes Ordered Tests: Active Orders 24 hr Category Date Time Status Wound Care STAT Care 08/09/20 21:03 Active HAND (MINIMUM 3 VIEWS) Stat Exams 08/09/20 21:04 Ordered Medication Summary Discontinued Medications Generic Name Dose Route Start Last Admin Trade Name Freq PRN Reason Stop Dose Admin Bacitracin Zinc 0.9 gm 08/09/20 21:03 08/09/20 21:15 Baciguent Packet TP 08/09/20 21:04 0.9 gm STAT ONE Administration Bacitracin Zinc Confirm 08/09/20 21:09 Baciguent Packet Administered 08/09/20 21:10 Dose 1 gm .ROUTE .STK-MED ONE Cefazolin Sodium 1 g 08/09/20 21:03 08/09/20 21:14 Kefzol 1 Gm IM 08/09/20 21:04 1 g STAT ONE Administration Cefazolin Sodium Confirm 08/09/20 21:09 Kefzol 1 Gm Administered 08/09/20 21:10 Dose 1 g .ROUTE .STK-MED ONE Diphtheria/Tetanus/Acell Pertussis 0.5 ml 08/09/20 21:03 08/09/20 21:14 Adacel Vial IM 08/09/20 21:04 0.5 ml .ONCE ONE Administration Diphtheria/Tetanus/Acell Pertussis Confirm 08/09/20 21:09 Adacel Vial Administered 08/09/20 21:10 Dose 0.5 ml IM .STK-MED ONE - Progress Progress: improved, pain not gone completely, re-examined Progress Note: 08/09/20 21:44 X-ray of right hand reveals no evidence of any acute fracture or dislocations. Counseled pt/family regarding: diagnosis, need for follow-up, rad results - Departure Departure Disposition: Home Clinical Impression: Injury of right hand, Abrasion of right hand and fingers Condition: Stable Critical Care Time: No Referrals: JEREMIAH VASQUEZ [Primary Care Provider] - Additional Instructions: Wash your right hand well 2 times a day with soap and water. Apply antibiotic ointment of choice to abrasion sites. Take your antibiotics as prescribed. Use ibuprofen 600 mg orally with food 3 times a day for the next 5 days. Return to the emergency department if your symptoms worsen. Prescriptions: Hydrocodone/APAP 5/325 [[place] 5/325 mg] 1 each PO Q8H PRN PRN #6 tablet MDD 3 PRN Reason: Pain Cephalexin Mh 500 mg [Keflex 500 mg] 500 mg PO TID #15 capsule
[2020-08-09] MEDS ORDERED: Adacel Vial IM ONE ×2 (21:03→21:09)
[2020-08-09] MEDS ORDERED: KEFZOL 1 GM IM ONE (21:03)
[2020-08-09] MEDS ORDERED: BACIGUENT PACKET TP ONE (21:03)
[2020-08-09] MEDS ORDERED: BACIGUENT PACKET ONE (21:09)
[2020-08-09] MEDS ORDERED: KEFZOL 1 GM ONE (21:09)
[2020-08-09 21:10] VITALS: BP 154/92; PULSE 97
[2020-08-09 21:45] VITALS: O2SAT 97
[2020-08-09] MEDS ORDERED: NORCO 5/325 MG PO ONE (21:48)
[2020-08-09] MEDS ORDERED: NORCO 5/325 MG ONE (21:50)
--- NOTE | 2020-08-09 22:24 | XRAY ---
Indication: Lawnmower accident. Comparison: None 3 view right hand obtained. No bony, articular, or soft tissue abnormalities.
== END 2020-08-09 21:58 | disposition home or self-care (01) ==
LOC: ED 20:51
DX: S60.511A Abrasion of right hand, initial encounter (principal); W28.XXXA Contact with powered lawn mower, initial encounter; I10 Essential (primary) hypertension
CPT/HCPCS: 73130; 90471; 90715; 96372; 99284; J0690; A9270-GY

== ENCOUNTER 2020-09-27 07:01 | Day surgery (SDC) | payer OTHER ==
[~2020-09-27 07:01] MED LIST: CEFAZOLIN 2 GM-D5W BAG** 2 GM/50 ML ML IV SCH; Lactated Ringers 1,000 ML IV SCH
[2020-09-27] MEDS ORDERED: DIPRIVAN 200 MG/20 ML IV ONE (08:20)
[2020-09-27] MEDS ORDERED: Zemuron 100 MG/10 ML ONE ×4 (08:20→13:42)
[2020-09-27] MEDS ORDERED: SUBLIMAZE 100 MCG/2 ML ONE ×2 (08:21→14:03)
[2020-09-27] MEDS ORDERED: Versed 2 MG/2 ML Injection ONE ×2 (08:21→08:24)
[2020-09-27] MEDS ORDERED: Xylocaine-Mpf 2% 5 Ml Vial ONE (09:33)
[2020-09-27] MEDS ORDERED: Marcaine 0.5%/Epinephrine 10 ML ONE (09:34)
[2020-09-27] MEDS ORDERED: Naropin 0.5% 30 ML VIAL ONE (09:34)
[2020-09-27] MEDS ORDERED: Lactated Ringers 1,000 ML IV ONE (09:38)
--- NOTE | 2020-09-27 14:08 | XRAY ---
Indication: Left foot fusion surgery. Intraoperative fluoroscopy was provided 4 minutes 47 seconds. 2 digital spot images submitted for interpretation demonstrates anterior plate and 5 screws fixating the 1st tarsometatarsal articulation. Correlate with intraoperative findings/report.
[2020-09-27] MEDS ORDERED: DILAUDID 2 MG INJECTION ONE (14:34)
[2020-09-27] MEDS ORDERED: BRIDION 200MG/2ML IV ONE (14:35)
--- NOTE | 2020-09-27 16:23 | XRAY ---
4 minutes and 47 seconds fluoroscopy time in surgery for left foot surgery.
[2020-09-27 16:49] VITALS: BP 149/90; PULSE 93; O2SAT 97
--- NOTE | 2020-09-30 15:11 | OP ---
SURGERY DATE: 09/27/2020 0853 PREOPERATIVE DIAGNOSES: 1) Painful hardware. 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 POSTOPERATIVE DIAGNOSES: 1) Painful hardware. 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 PROCEDURE: Hardware removal x3 and first tarsometatarsal arthrodesis, plantar flexor arthrodesis. SURGEON: Pasquale Rucker DPM. STORAGE CONSULTANT: None. ANESTHESIA: General plus preoperative popliteal and saphenous block. See anesthesia report for details. HEMOSTASIS: Thigh tourniquet set to 350 mm of Mercury for 120 minutes and a subsequent 15 minute period deflated as well as 118 minute re-inflation. ESTIMATED BLOOD LOSS: 150 cc. MATERIALS: [email or web address] Cortical and locking screws as well as a first tarsometatarsal fusion plate, 2-0 Vicryl on SH needle and 3-0 Nylon. INJECTABLES: See anesthesia report. INDICATION FOR PROCEDURE: The patient presented to me approximately one month prior to surgical intervention in regards to significant amount of pain that he is experiencing due to the hardware sites of a triple arthrodesis that occurred [address] Rios at [facility]. The patient since has had attempts at arthrodesis from this encounter. However, he is experiencing painful hardware in the three sites where the screws are located near the surface of the skin. He also does have significant deformity as a result of the hind foot correction. There was a residual forefoot supinatus or forefoot varus that resulted in a Checkrein flexor hallucis longus tendon. The patient failed accommodative footwear as well as bracing for this issue. He has since been walking on his big toe in order to compensate for the met primus elevatus that he has been experiencing. He experiences significant pain with this issue and comes to me for definitive correction at this time. After failing all the appropriate conservative measures for pain management surgical intervention I felt was warranted at this time. The patient understands all risks, benefits and complications that could result of this surgery that include but are not limited to surgical nonhealing of wound, delayed healing of wounds, delayed healing of bones, nonhealing of bones, potential nonunion or malunion, failure of surgery or incomplete correction of surgical intervention. There is also potential risk for deep venous thrombosis that the patient is made aware of as well as postoperative infection for which he will be prophylactically administered antibiotic as well as blood thinner following the postoperative course. The patient also understands that his postoperative course will likely be approximately eight weeks of nonweight bearing to the left lower extremity to which he agrees. He will be ambulating with the assistance of crutches and a knee scooter during this time. DESCRIPTION OF PROCEDURE AND FINDINGS: After adequate anesthesia team evaluation in the preoperative area as well as meeting preoperative requirements, the patient was brought into the operating room and placed on the operating room table in supine position. The patient was then administered a popliteal block as well as a saphenous block by the anesthesia team. Following this general sedation was administered by the anesthesia team until the patient was sedated adequately and the left lower extremity was lowered onto the surgical field after a thigh tourniquet was applied and set to 350 mm of Mercury and the foot was prepped and draped in the typical sterile fashion. At this time attention was directed to the prominent screw head located at the calcaneal cuboid joint. A small incision was made with a 15 blade combination of blunt and sharp dissection was utilized in order to rotate the head of the screw under fluoroscopy. At this time rongeurs was utilized to debride some of the bony surface that the heterotopic ossification occurred over the top of the screw and the screw was located. At this time a K-wire was then utilized and 4-0 hexhead cannulated screwdriver was utilized to remove that screw. At this time attention was then directed to the talonavicular fusion site where the screw was placed from the distal plantar medial aspect of the navicular tuberosity in order to fixate. Again, a 15 blade was utilized in order to locate the screw head on fluoroscopy. A combination of blunt and sharp dissection was then accomplished utilizing rongeurs and a 15 blade as well as dissection scissors to get to the top of the screw head. A K-wire was then threaded through the hole of the cannulated screw and the screw was removed utilizing a hexhead 4-0 screwdriver. At this time the intraoperative decision was made to find, locate and remove the screw located at the subtalar joint due to the prominent screw head causing some osteoarthritis at the anterior aspect of the left ankle with dorsiflexion. A 15 blade was then utilized to make a small incision over the scar and a combination of sharp and blunt dissection was then utilized to get down to the bony surface where a rongeurs was utilized to remove some of the bony overgrowth and locate the subtalar joint screw, this was removed in toto. Fluoroscopy was at this time utilized to demonstrate that all the orthopedic hardware was removed. At this time attention then was directed to the incision that was made for removal of the talonavicular screw. At this time the incision was then extended distally over the first tarsometatarsal joint in order to expose the forefoot varus and the first tarsometatarsal joint line. At this time dissection was carried through the joint line utilizing a 15 blade protecting the dorsal structures the extensor hallucis longus as well as the flexor hallucis longus plantar and the abductor muscle belly. At this point care was made to damage any of the perforating arteries of the common metatarsal arteries or the tibialis anterior posterior tibial in this area. The joint was distracted using a laminar shade hanger and the joint surfaces were prepared removing all cartilage until the subchondral plate was exposed. At this time a 2-0 mm drill was then utilized to fenestrate the bone surface in order to allow for vascular channels to be promoted through and an osteotome and chisel were utilized to score the surface in order to increase the bony contact surface area in order to promote fusion of these two sites. At this time the foot was checked with a foot plate underneath and the first tarsometatarsal joint plantar flexed to a weight bearing stance. At this position joint position was deemed to be adequate for fixation and a 3.5 mm home-run screw drilled in an over drill/under drill type fashion in order to secure the screw from the distal dorsal lateral aspect of the first metatarsal to the plantar proximal medial aspect of the first cuneiform. At this time the screw position was deemed to be adequate. Position was maintained with 1.6 mm K-wire and the dorsal aspect of the defect at the first tarsometatarsal joint due to the plantar flexion was packed with Allograft cancellous chips. At this time 120 minutes had passed and the tourniquet was let down. There was significant amount of healthy bone bleeding noted. All bleeders were ligated and cauterized with the Bovie. At this time a first tarsometatarsal plate was applied to the dorsal medial aspect of the first tarsometatarsal joint and the position was deemed to be adequate. A number of nonlocking screws were applied first in order to get the plate down to the surface of the bone at the medial cuneiform and then a combination of locking and nonlocking screws were utilized to secure the bone surface this was checked under fluoroscopy and deemed to be adequate. The additional 10 cc of cancellous chips were then packed into the deficit at the dorsal aspect of the first tarsometatarsal joint and fluoroscopy was then checked again and deemed to be adequate. At this time attention then was directed to the plantar aspect of the first metatarsal where an attempt to identify the flexor hallucis longus tendon for potential lengthening was made however it was unable to be found. Intraoperative decision to make incision for the flexor hallucis longus tendon at the tarsal tunnel was made. However, the tendon was not encountered in this location. I believe at this time that in the patient's previous history he may have had a flexor hallucis longus tendon transfer in addition to his triple arthrodesis due to the fact there was an absence of the flexor hallucis longus at both of these locations this was unable to be known prior to the procedure due to the fact that the medical record was over 18 years ago. Attempts to obtain the medical record prior to this event were destroyed approximately ten years ago. The patient has no knowledge of this procedure in the past. At this time the incision sites were lavaged with copious amounts of sterile saline and the incision sites were coapted utilizing 2-0 Vicryl as well as 3-0 Nylon in a horizontal mattress-type fashion so as to mauricio the skin edges. At this time Hibiclens was utilized to remove the blood from the surface of the foot and ankle. At this time the tourniquet was dropped at 118 minutes plus the additional 120 minutes that ran prior to this event. Betadine was then utilized to cover the incision sites as well as Adaptic, 4x4 and Kerlix. At this time a two - 4 inch cast padding were applied to the lower extremity. A 4 inch BAO was then applied, another two rolls cast padding and a fiberglass posterior splint was applied to the left lower extremity which was secured by a 4 inch and 6 inch BAO. At this time the patient was reversed from anesthesia and returned to the postoperative anesthesia care unit with vital signs stable and vascular status intact. Once in the postoperative anesthesia care unit, capillary refill time was checked and deemed to be less than 3 seconds. The patient handled the procedure and the anesthesia well without much complication and admitted to be in little pain following the procedure. Postoperative orders as follows: 1) Keep dressings clean, dry and intact. Do not take down the dressing for any reason without the consultation of Dr. Giordano. Dressing is to remain dry throughout postoperative course. 2) Elevate the operative extremity above the level of the heart to reduce inflammation and pain. 3) Ice behind the knee to reduce inflammation. 4) Nonweight bearing to the left lower extremity. Full weight bearing to the right lower extremity with the assistance of crutches and a knee scooter. 5) Postoperative pain control with [place] 10/325 mg every four to six hours for break through pain alternate with ibuprofen 600 mg every six hours. 6) Postoperative infection prophylaxis: Keflex 500 every six hours for ten days. 7) Postoperative deep venous thrombosis prophylaxis: Aspirin 325 mg p.o. daily until weight bearing. 8) Follow up within one week of procedure in clinic. 9) Discharge patient to home.
== END 2020-09-27 17:02 | disposition home or self-care (01) ==
LOC: SDC 07:01
PROVIDERS: ATTEND Podiatrist Foot & Ankle Surgery
DX: T84.84XA Pain due to internal orthopedic prosthetic devices, implants and grafts, initial encounter (principal); M21.172 Varus deformity, not elsewhere classified, left ankle
CPT/HCPCS: 20680; 28730; 64450; 73620; 76000; 76937; 76942; J0690; J1170; J2250; J2704; J2795; J3010

== ENCOUNTER 2021-07-20 06:24 | Emergency (ER) | payer OTHER ==
[2021-07-20] MEDS ORDERED: Cleocin Phosphate IV 600 MG/4 ML IM ONE (07:30)
[2021-07-20] MEDS ORDERED: TORAdol 30 mg Injection ONE (07:33)
[2021-07-20] MEDS ORDERED: Cleocin Phosphate IV 600 MG/4 ML ONE (07:33)
[2021-07-20] MEDS: TORAdol 30 mg Injection IM ONE ×2 (07:34→07:58)
--- NOTE | 2021-07-20 07:57 | ERPHSYRPT ---
- History of Present Illness Time Seen by Provider: 07/20/21 07:49 Source: patient Exam Limitations: no limitations Patient Subjective Stated Complaint: C/O a bug bite to his back/buttocks area. States areas starts like a little pimple and usually goes away. States this is the third one he has had in the same general area but this one keeps getting worse and will not go away. The current "bite" has been here for about a week. Triage Nursing Assessment: Circular open sore noted to patient's right upper buttocks/lower back area. Open area measures 2cm X 2cm and is beefy red with yellow, moist slough areas noted within it. Moderate amount of purulent drainage noted. There is a red, warm parameter extending around the entire wound. The open area with the red parameter included measures 5.5cm X 6cm. Physician History: 36 years old male presented in the ER with chief complaint of low back area swelling for the last 2-1/2 weeks. Patient reported started as a small pimple which clears up and another one comes on with associated mild discharge of pus. He has 3 so far in the same area. He has been using [id number] medication with pain is getting worse, reports sharp shooting to severe intensity pain in the area around the boil with palpation lying on the back. No history of MRSA. Up-to-date with tetanus. Timing/Duration: week(s) (2.5), gradual onset, worse Quality: painful Severity: moderate Location: other Possible Causes: no cause identified Associated Symptoms: swelling/mass/lumps Allergies/Adverse Reactions: No Known Drug Allergies Allergy (Verified 07/20/21 06:45) Hx Tetanus, Diphtheria Vaccination/Date Given: Yes Hx Influenza Vaccination/Date Given: No Hx Pneumococcal Vaccination/Date Given: No Immunizations Up to Date: Yes Travel Risk - International Travel Have you traveled outside of the country in past 3 weeks: No - Coronavirus Screening Are you exhibiting any of the following symptoms?: No Close contact with a COVID-19 positive Pt in past 14-21 Days: No - Vaccine Status Have you recieved a Covid-19 vaccination: No - Review of Systems Constitutional: No Symptoms Eyes: No Symptoms Respiratory: No Symptoms Cardiac: No Symptoms Abdominal/Gastrointestinal: No Symptoms Genitourinary Symptoms: No Symptoms Musculoskeletal: No Symptoms Skin: Cellulitis, Induration Neurological: No Symptoms Endocrine: No Symptoms Hematologic/Lymphatic: No Symptoms Immunological/Allergic: No Symptoms - Past Medical History Pertinent Past Medical History: Yes Neurological History: No Pertinent History, TIA ENT History: Other Cardiac History: Hypertension Respiratory History: No Pertinent History Endocrine Medical History: No Pertinent History Musculoskeletal History: No Pertinent History GI Medical History: No Pertinent History History: No Pertinent History Psycho-Social History: Other Male Reproductive Disorders: No Pertinent History 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 EARS - Social History Smoking Status: Current every day smoker How long have you smoked: 12 years Exposure to second hand smoke: Yes Alcohol Use: Socially Drug Use: none Patient Lives Alone: No (Father) - Nursing Vital Signs Nursing Vital Signs: Initial Vital Signs Temperature 97.3 F 07/20/21 06:32 Pulse Rate 88 07/20/21 06:32 Respiratory Rate 20 07/20/21 06:32 Blood Pressure 159/97 07/20/21 06:32 O2 Sat by Pulse Oximetry 100 07/20/21 06:32 Pain Scale Pain Intensity 3 - Physical Exam General Appearance: no apparent distress, alert Eye Exam: eyes nml inspection Neck Exam: normal inspection, supple, full range of motion Respiratory Exam: normal breath sounds, lungs clear Cardiovascular Exam: regular rate/rhythm, normal heart sounds Back Exam: normal range of motion, other (2 x 2 cm area just lateral to midline the sacroiliac area right, beefy red, induration and erythema around. Tender to touch. 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 Skin Exam: normal color SpO2 Interpretation: normal SpO2: 100 O2 Delivery: Room Air Ordered Tests: Medication Summary Discontinued Medications Generic Name Dose Route Start Last Admin Trade Name Freq PRN Reason Stop Dose Admin Clindamycin Phosphate 600 mg 07/20/21 07:30 07/20/21 07:34 Cleocin Phosphate Iv 600 Mg/4 Ml IM 07/20/21 07:31 600 mg ONCE ONE Administration Clindamycin Phosphate Confirm 07/20/21 07:33 Cleocin Phosphate Iv 600 Mg/4 Ml Administered 07/20/21 07:34 Dose 600 mg .ROUTE .STK-MED ONE Ketorolac Tromethamine 30 mg 07/20/21 07:30 Toradol 30 Mg Injection IM 07/20/21 07:31 STAT ONE Ketorolac Tromethamine Confirm 07/20/21 07:33 Toradol 30 Mg Injection Administered 07/20/21 07:34 Dose 30 mg .ROUTE .STK-MED ONE - Progress Progress: pain not gone completely Progress Note: 07/20/21 07:56 36 years old is evaluated for lesion in the lower back. Does have induration but no fluctuation. Needle aspiration is negative for any pus. I will start him on clindamycin. Symptomatic treatment for pain. I will refer him outpatient to general surgery for possible biopsy to rule out skin cancer. Plan discussed with patient who understands and agrees with it. Counseled pt/family regarding: diagnosis, need for follow-up - Departure Departure Disposition: Home Clinical Impression: Cellulitis Qualifiers: Site of cellulitis: other site Qualified Code(s): L03.818 - Cellulitis of other sites Condition: Stable Critical Care Time: No Referrals: JEREMIAH VASQUEZ [Primary Care Provider] - (Call tomorrow for appointment) GALE THAO MD [ACTIVE STAFF] - (Call for appointment for reevaluation and possible biopsy) Instructions: Cellulitis (Skin Infection), Adult (DC) Additional Instructions: Use Tylenol/ibuprofen as needed for pain. Keep it clean. Follow-up with primary care and general surgery for reevaluation and may need biopsy if not healing well. Return to ER for any increasing pain swelling discharge/fever chills etc. Prescriptions: Ibuprofen 600 mg PO Q6HPRN PRN 10 Days #20 tablet PRN Reason: Pain Clindamycin HCl 150 mg [Cleocin 150 mg Capsule] 2 cap PO QID #56 cap
[2021-07-20] MEDS ORDERED: NORCO 5/325 MG PO ONE (08:00)
[2021-07-20] MEDS ORDERED: NORCO 5/325 MG ONE (08:00)
[2021-07-20 08:45] VITALS: BP 156/95; PULSE 84; O2SAT 99
== END 2021-07-20 08:44 | disposition home or self-care (01) ==
LOC: ED 06:24
DX: L03.818 Cellulitis of other sites (principal)
CPT/HCPCS: 96372; 99284; J1885; A9270-GY

== ENCOUNTER 2022-04-12 19:38 | Emergency (ER) | payer OTHER ==
--- NOTE | 2022-04-12 19:42 | ERPHSYRPT ---
- History of Present Illness Time Seen by Provider: 04/12/22 19:41 Source: patient Exam Limitations: no limitations Physician History: This is a 36-year-old white male patient has no known drug allergies and who presents with right foot cellulitis. He stepped on a tomato cage wire yesterday. It penetrated through his shoe into the plantar surface of his right foot. Patient states he is certain that the whole wire came out and there is no chance that there is retained metal in his right foot. In the last 24 to 30 hours he has had swelling and redness to the top of his right foot. He is concerned for possible infection. Patient is not diabetic. His tetanus status is up-to-date. Occurred: yesterday Quality: constant, aching Severity of Pain-Max: mild Severity of Pain-Current: mild (Mild to moderate) Lower Extremities Pain: foot: right (Lanter surface puncture wound) Modifying Factors: Improves With: movement Associated Symptoms: other (Hurts to bear weight) Allergies/Adverse Reactions: No Known Drug Allergies Allergy (Verified 04/12/22 19:55) Hx Tetanus, Diphtheria Vaccination/Date Given: Yes Hx Influenza Vaccination/Date Given: No Hx Pneumococcal Vaccination/Date Given: No Travel Risk - International Travel Have you traveled outside of the country in past 3 weeks: No - Coronavirus Screening Are you exhibiting any of the following symptoms?: No Close contact with a COVID-19 positive Pt in past 14-21 Days: No - Vaccine Status Have you recieved a Covid-19 vaccination: No - Review of Systems Constitutional: No Symptoms Eyes: No Symptoms Ears, Nose, & Throat: No Symptoms Respiratory: No Symptoms Cardiac: No Symptoms Abdominal/Gastrointestinal: Constipation Genitourinary Symptoms: No Symptoms Musculoskeletal: Injury (Plantar surface right foot) Skin: Cellulitis (Dorsal surface right foot) Neurological: No Symptoms Psychological: No Symptoms Endocrine: No Symptoms Hematologic/Lymphatic: No Symptoms Immunological/Allergic: No Symptoms All Other Systems: Reviewed and Negative - Past Medical History Pertinent Past Medical History: Yes Neurological History: No Pertinent History, TIA ENT History: Other Cardiac History: Hypertension Respiratory History: No Pertinent History Endocrine Medical History: No Pertinent History Musculoskeletal History: No Pertinent History GI Medical History: No Pertinent History History: No Pertinent History Psycho-Social History: Other Male Reproductive Disorders: No Pertinent History 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 EARS - Social History Smoking Status: Current every day smoker How long have you smoked: 12 years Exposure to second hand smoke: Yes Alcohol Use: Socially Drug Use: none Patient Lives Alone: No (Father) - Nursing Vital Signs Nursing Vital Signs: Initial Vital Signs Temperature 97.7 F 04/12/22 19:39 Pulse Rate 86 04/12/22 19:39 Respiratory Rate 17 04/12/22 19:39 Blood Pressure 126/75 04/12/22 19:39 O2 Sat by Pulse Oximetry 100 04/12/22 19:39 Pain Scale Pain Intensity 7 - Physical Exam General Appearance: no apparent distress, alert, anxiety Eyes, Ears, Nose, Throat Exam: normal ENT inspection, moist mucous membranes Neck Exam: normal inspection, non-tender, supple, full range of motion Cardiovascular/Respiratory Exam: chest non-tender, no respiratory distress Gastrointestinal/Abdominal Exam: non-tender Back Exam: normal inspection, normal range of motion, No CVA tenderness, No vertebral tenderness Hips Exam: bilateral: non-tender, normal inspection, normal range of motion, no evidence of injury Legs Exam: bilateral leg: non-tender, normal inspection, normal range of motion, no evidence of injury Knees Exam: bilateral knee: non-tender, normal inspection, normal range of motion Ankle Exam: bilateral ankle: non-tender, normal inspection, normal range of motion, no evidence of injury Foot Exam: right foot: infection (Dorsal surface right foot), soft tissue tenderness (Dorsal and plantar surface right foot), swelling (Dorsal surface right foot), other (Puncture wound plantar surface right foot without evidence of any drainage cellulitis or abscess), left foot: non-tender, normal insp ection, normal range of motion, no evidence of injury Neuro/Tendon Exam: normal sensation, normal motor functions, normal tendon functions, responds to pain, no evidence tendon injury Mental Status Exam: alert, oriented x 3 Skin Exam: other (Cellulitis right foot dorsal aspect) SpO2 Interpretation: normal O2 Delivery: Room Air - Course Nursing assessment & vital signs reviewed: Yes Ordered Tests: Medication Summary Discontinued Medications Generic Name Dose Route Start Last Admin Trade Name Danica PRN Reason Stop Dose Admin Ceftriaxone Sodium 1,000 mg 04/12/22 19:59 04/12/22 20:11 Ceftriaxone Sodium 1000 Mg Inj Vial IM 04/12/22 20:00 1,000 mg STAT ONE Administration Ceftriaxone Sodium Confirm 04/12/22 20:10 Ceftriaxone Sodium 1000 Mg Inj Vial Administered 04/12/22 20:11 Dose 1,000 mg .ROUTE .STK-MED ONE Levofloxacin 500 mg 04/12/22 19:59 04/12/22 20:11 Levofloxacin 500 Mg Tablet PO 04/12/22 20:00 500 mg STAT ONE Administration Levofloxacin Confirm 04/12/22 20:10 Levofloxacin 500 Mg Tablet Administered 04/12/22 20:11 Dose 500 mg .ROUTE .STK-MED ONE Lidocaine HCl Confirm 04/12/22 20:12 Lidocaine Hcl 1% 20 Ml Mdv 20 Ml Ml Administered 04/12/22 20:13 Dose 3 ml .ROUTE .STK-MED ONE - Progress Progress: unchanged Counseled pt/family regarding: diagnosis, need for follow-up - Departure Departure Disposition: Home Clinical Impression: Cellulitis of right foot Condition: Stable Critical Care Time: No Referrals: JEREMIAH VASQUEZ [Primary Care Provider] - Follow up/PCP as directed Additional Instructions: Soak right foot 2 times a day with Epson salts and warm water. Do not use any ointments lotions or creams to the puncture wound on your right foot. Take your antibiotics as prescribed. Add ibuprofen 600 mg orally with food for pain control. Return to the emergency department if symptoms worsen. Prescriptions: Hydrocodone/APAP 5/325 [[place] 5/325 mg] 1 each PO Q8H PRN PRN #6 tablet MDD 3 PRN Reason: Pain Doxycycline Hyclate 100 mg [Vibramycin 100 MG] 100 mg PO BID #14 tab
[2022-04-12] MEDS ORDERED: Rocephin 1000 MG INJ IM ONE (19:59)
[2022-04-12] MEDS ORDERED: Levofloxacin 500 MG Tablet PO ONE (19:59)
[2022-04-12] MEDS ORDERED: Levofloxacin 500 MG Tablet ONE (20:10)
[2022-04-12] MEDS ORDERED: Rocephin 1000 MG INJ ONE (20:10)
[2022-04-12] MEDS ORDERED: XYLOCAINE 1% HCL 20 ML MDV ONE (20:12)
[2022-04-12] MEDS ORDERED: NORCO 5/325 MG PO ONE (20:42)
[2022-04-12] MEDS ORDERED: NORCO 5/325 MG ONE (20:45)
[2022-04-12 20:51] VITALS: BP 98/52; PULSE 80; O2SAT 98
== END 2022-04-12 20:51 | disposition home or self-care (01) ==
LOC: ED 19:38
DX: S91.331A Puncture wound without foreign body, right foot, initial encounter (principal); L03.115 Cellulitis of right lower limb; W22.09XA Striking against other stationary object, initial encounter; M25.571 Pain in right ankle and joints of right foot; I10 Essential (primary) hypertension; Z72.0 Tobacco use; Z79.891 Long term (current) use of opiate analgesic
CPT/HCPCS: 96372; 99284; J0696; A9270-GY

== ENCOUNTER 2022-04-13 14:53 | Emergency (ER) | payer OTHER ==
--- NOTE | 2022-04-13 15:47 | ERPHSYRPT ---
- History of Present Illness Source: patient, police Exam Limitations: other (Very poor historian) Patient Subjective Stated Complaint: pt states his father thinks he is hallucinating but pt denies any visual or auditory hallucinations. Triage Nursing Assessment: pt to ED by PD voluntarily for evaluation. PD states that his father reports the pt experiencing hallucinations but the pt denies auditory or visual hallucinations. pt denies SI/HI. pt admits to using meth 4 d ays ago, taking 2 xanax last night, and smoking weed daily. "I am not hallucinating, I just pay close attention to everything." pt is A&Ox4. Physician History: 36 yo wm brought into ER by police for hallucinations. He is not under arrest and denies suicidal/homicidal ideations. Pt seen in ER yesterday for foot injury but has not filled his Rx for Doxycycline or [place]. He complains of R foot pain. Fever is denied. Pt states that he has been using methamphetamine but states that he has not used it for 2-3 days. Method of Injury: other (Stepped on chicken wire) Occurred: yesterday Quality: sharpness Severity of Pain-Max: moderate Severity of Pain-Current: moderate Lower Extremities Pain: foot: right Modifying Factors: Improves With: movement Associated Symptoms: No unable to bear weight, No dizzy, No fainted, No seizure, No snapping sensation, No popping sensation Allergies/Adverse Reactions: No Known Drug Allergies Allergy (Verified 04/13/22 14:55) Hx Tetanus, Diphtheria Vaccination/Date Given: Yes Hx Influenza Vaccination/Date Given: No Hx Pneumococcal Vaccination/Date Given: No Immunizations Up to Date: No Travel Risk - International Travel Have you traveled outside of the country in past 3 weeks: No - Coronavirus Screening Are you exhibiting any of the following symptoms?: No Close contact with a COVID-19 positive Pt in past 14-21 Days: No - Vaccine Status Have you recieved a Covid-19 vaccination: No 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 - Review of Systems Constitutional: No Symptoms Eyes: No Symptoms Ears, Nose, & Throat: No Symptoms Respiratory: No Symptoms Cardiac: No Symptoms Abdominal/Gastrointestinal: No Symptoms Genitourinary Symptoms: No Symptoms Skin: No Symptoms Psychological: No Symptoms Endocrine: No Symptoms Hematologic/Lymphatic: No Symptoms Immunological/Allergic: No Symptoms - Past Medical History Pertinent Past Medical History: Yes Neurological History: No Pertinent History, TIA ENT History: Other Cardiac History: Hypertension Respiratory History: No Pertinent History Endocrine Medical History: No Pertinent History Musculoskeletal History: No Pertinent History GI Medical History: No Pertinent History History: No Pertinent History Psycho-Social History: Other Male Reproductive Disorders: No Pertinent History 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 EARS - Social History Smoking Status: Current every day smoker How long have you smoked: 12 years Exposure to second hand smoke: Yes Alcohol Use: Socially Drug Use: marijuana, methamphetamines, other Patient Lives Alone: No (Father) Significant Family History: no pertinent family hx - Nursing Vital Signs Nursing Vital Signs: Initial Vital Signs Temperature 97.0 F 04/13/22 14:57 Pulse Rate 70 04/13/22 14:57 Respiratory Rate 18 04/13/22 14:57 Blood Pressure 127/83 04/13/22 14:57 O2 Sat by Pulse Oximetry 100 04/13/22 14:57 Pain Scale Pain Intensity 0 WNL - Physical Exam General Appearance: no apparent distress Eyes, Ears, Nose, Throat Exam: normal ENT inspection, TMs normal, pharynx normal, moist mucous membranes Neck Exam: normal inspection, non-tender, supple, full range of motion, No Brudzinski, No Kernig's, No meningismus Cardiovascular/Respiratory Exam: normal breath sounds, regular rate/rhythm, heart sounds normal, no respiratory distress Gastrointestinal/Abdominal Exam: non-tender, soft Back Exam: normal inspection, normal range of motion, No CVA tenderness, No vertebral tenderness Hips Exam: bilateral: non-tender, normal inspection, normal range of motion, no evidence of injury Legs Exam: bilateral leg: non-tender, normal inspection, normal range of motion, no evidence of injury Knees Exam: bilateral knee: non-tender, normal inspection, normal range of motion, no evidence of injury Ankle Exam: bilateral ankle: non-tender, normal inspection, normal range of motion, no evidence of injury Foot Exam: right foot: other (R dorsal foot w mild erythema/Good pedal pulse, distal sensation, and capillary return/Mild dorsal TTP/Mild edema) DTR - Lower Extremities Exam: knee (R): 2+, knee (L): 2+ Neuro/Tendon Exam: normal sensation, normal motor functions, normal tendon functions, responds to pain, no evidence tendon injury, No motor deficit, No sensory deficit Mental Status Exam: alert, oriented x 3 Skin Exam: warm, dry, No rash SpO2 Interpretation: normal SpO2: 100 O2 Delivery: Room Air - Course Nursing assessment & vital signs reviewed: Yes - Radiology Exams Foot X-ray Interpretation: Discussed w/ radiologist (R foot-nothing acute) Ordered Tests: Active Orders 24 hr Category Date Time Status AMA [Release AMA] OM.NOW Care 04/13/22 17:39 Completed FOOT (MINIMUM 3 VIEWS) Stat Exams 04/13/22 15:59 Completed ACETAMINOPHEN Stat Lab 04/13/22 16:05 Completed CBC W DIFF Stat Lab 04/13/22 16:05 Completed CMP Stat Lab 04/13/22 16:05 Completed ETHYL ALCOHOL Stat Lab 04/13/22 16:05 Completed SALICYLATE Stat Lab 04/13/22 16:05 Completed UA W/RFX CULTURE Stat Lab 04/13/22 17:48 Completed Urine Triage Profile Stat Lab 04/13/22 17:48 Completed Lab/Rad Data: Laboratory Result Diagrams 04/13/22 16:05 04/13/22 16:05 Laboratory Results 04/13/22 04/13/22 04/13/22 Range/Units 17:48 17:48 16:05 WBC (4.0-10.5) K/mm3 RBC (4.1-5.6) M/mm3 Hgb (12.5-18.0) gm/dl Hct (42-50) % MCV (78-100) fl MCH (26-32) pg MCHC (32-36) g/dl RDW (11.5-14.0) % Plt Count (150-450) K/mm3 MPV (7.5-11.0) fl Gran % (36.0-66.0) % Eos # (Auto) (0-0.5) Absolute Lymphs (auto) (1.0-4.6) Absolute Monos (auto) (0.0-1.3) Lymphocytes % (24.0-44.0) % Monocytes % (0.0-12.0) % Eosinophils % (0.00-5.0) % Basophils % (0.0-0.4) % Absolute Granulocytes (1.4-6.9) Basophils # (0-0.4) Sodium 137 (137-145) mmol/L Potassium 3.9 (3.5-5.1) mmol/L Chloride 102 (98-107) mmol/L Carbon Dioxide 29 (22-30) mmol/L Anion Gap 10.2 (5-15) MEQ/L BUN 12 (9-20) mg/dL Creatinine 0.84 (0.66-1.25) mg/dL Estimated GFR > 60.0 ML/MIN Glucose 85 (74-106) mg/dL Calcium 8.8 (8.4-10.2) mg/dL Total Bilirubin 1.30 (0.2-1.3) mg/dL AST 31 (17-59) U/L ALT 24 (0-50) U/L Alkaline Phosphatase 52 (38-126) U/L Serum Total Protein 7.2 (6.3-8.2) g/dL Albumin 4.0 (3.5-5.0) g/dL Urinalys Dipstick Clnc MAIN LAB Urine Color YELLOW (YELLOW) Urine Appearance CLEAR (CLEAR) Urine pH 6.0 (5-6) Ur Specific Griffin 1.025 (1.005-1.025) POC Urine Protein Conf NEGATIVE (Negative) Urine Ketones NEGATIVE (NEGATIVE) Urine Nitrite NEGATIVE (NEGATIVE) Urine Bilirubin NEGATIVE (NEGATIVE) Urine Urobilinogen 0.2 (0-1) mg/dL Urine Leukocytes NEGATIVE (NEGATIVE) Urine WBC (Auto) NONE (0-5) /HPF Urine RBC (Auto) NONE (0-2) /HPF U Epithel Cells (Auto) NONE (FEW) /HPF Urine Bacteria (Auto) NONE (NEGATIVE) /HPF Urine RBC NEGATIVE (0-5) Anibal/ul Urine Mucus (Auto) SLIGHT (NEGATIVE) /HPF Ur Culture Indicated? NO Urine Glucose NEGATIVE (NEGATIVE) mg/dL Salicylates < 1.0 L (2-20) mg/dL Urine Opiates Level POSITIVE (NEGATIVE) Ur Methadone NEGATIVE (NEGATIVE) Acetaminophen < 10 L (10-30) ug/ml Urine Barbiturates NEGATIVE (NEGATIVE) Ur Phencyclidine (PCP) NEGATIVE (NEGATIVE) Urine Amphetamine POSITIVE (NEGATIVE) U Benzodiazepine Level POSITIVE (NEGATIVE) Urine Cocaine NEGATIVE (NEGATIVE) Urine Marijuana (THC) POSITIVE (NEGATIVE) Ethyl Alcohol < 10 (0-10) mg/dL 04/13/22 Range/Units 16:05 WBC 4.6 (4.0-10.5) K/mm3 RBC 5.08 (4.1-5.6) M/mm3 Hgb 14.9 (12.5-18.0) gm/dl Hct 46.5 (42-50) % MCV 91.5 (78-100) fl MCH 29.3 (26-32) pg MCHC 32.0 (32-36) g/dl RDW 14.9 H (11.5-14.0) % Plt Count 133 L (150-450) K/mm3 MPV 10.9 (7.5-11.0) fl Gran % 41.1 (36.0-66.0) % Eos # (Auto) 0.16 (0-0.5) Absolute Lymphs (auto) 2.17 (1.0-4.6) Absolute Monos (auto) 0.38 (0.0-1.3) Lymphocytes % 47.0 H (24.0-44.0) % Monocytes % 8.2 (0.0-12.0) % Eosinophils % 3.5 (0.00-5.0) % Basophils % 0.2 (0.0-0.4) % Absolute Granulocytes 1.90 (1.4-6.9) Basophils # 0.01 (0-0.4) Sodium (137-145) mmol/L Potassium (3.5-5.1) mmol/L Chloride (98-107) mmol/L Carbon Dioxide (22-30) mmol/L Anion Gap (5-15) MEQ/L BUN (9-20) mg/dL Creatinine (0.66-1.25) mg/dL Estimated GFR ML/MIN Glucose (74-106) mg/dL Calcium (8.4-10.2) mg/dL Total Bilirubin (0.2-1.3) mg/dL AST (17-59) U/L ALT (0-50) U/L Alkaline Phosphatase (38-126) U/L Serum Total Protein (6.3-8.2) g/dL Albumin (3.5-5.0) g/dL Urinalys Dipstick Clnc Urine Color (YELLOW) Urine Appearance (CLEAR) Urine pH (5-6) Ur Specific Griffin (1.005-1.025) POC Urine Protein Conf (Negative) Urine Ketones (NEGATIVE) Urine Nitrite (NEGATIVE) Urine Bilirubin (NEGATIVE) Urine Urobilinogen (0-1) mg/dL Urine Leukocytes (NEGATIVE) Urine WBC (Auto) (0-5) /HPF Urine RBC (Auto) (0-2) /HPF U Epithel Cells (Auto) (FEW) /HPF Urine Bacteria (Auto) (NEGATIVE) /HPF Urine RBC (0-5) Anibal/ul Urine Mucus (Auto) (NEGATIVE) /HPF Ur Culture Indicated? Urine Glucose (NEGATIVE) mg/dL Salicylates (2-20) mg/dL Urine Opiates Level (NEGATIVE) Ur Methadone (NEGATIVE) Acetaminophen (10-30) ug/ml Urine Barbiturates (NEGATIVE) Ur Phencyclidine (PCP) (NEGATIVE) Urine Amphetamine (NEGATIVE) U Benzodiazepine Level (NEGATIVE) Urine Cocaine (NEGATIVE) Urine Marijuana (THC) (NEGATIVE) Ethyl Alcohol (0-10) mg/dL - Progress Progress Note: 04/13/22 17:38 Pt denied suicidal/homicidal ideation during entire stay Pt signed AMA form Counseled pt/family regarding: lab results, diagnosis, need for follow-up - Departure Departure Disposition: AMA Clinical Impression: Cellulitis of foot, Polysubstance abuse Condition: Stable Critical Care Time: No Referrals: JEREMIAH VASQUEZ [Primary Care Provider] - Follow up/PCP as directed
[2022-04-13 16:27] LABS: ACETAMINOPHEN < 10 ug/ml (10-30); ALKALINE PHOSPHATASE 52 U/L (38-126); ANION GAP 10.2 MEQ/L (5-15); BLOOD UREA NITROGEN 12 mg/dL (9-20); CHLORIDE 102 mmol/L (98-107); Calcium 8.8 mg/dL (8.4-10.2); Carbon Dioxide 29 mmol/L (22-30); Creatinine 1 0.84 mg/dL (0.66-1.25); EST GLOMERULAR FILTRATION RATE > 60.0 ML/MIN; ETHYL ALCOHOL < 10 mg/dL (0-10); Glucose 85 mg/dL (74-106); Potassium 3.9 mmol/L (3.5-5.1); SALICYLATE < 1.0 mg/dL (2-20); SGOT/AST 31 U/L (17-59); SGPT/ALT 24 U/L (0-50); SODIUM 137 mmol/L (137-145); Total Protein 7.2 g/dL (6.3-8.2)
--- NOTE | 2022-04-13 16:35 | XRAY ---
Indication: Pain. Stepped on wire. Foreign body. Comparison: None 3 nonweightbearing views right foot negative for radiopaque foreign body. Incidental tiny posterior spur and small cuboid accessory ossicle. No other bony, articular, or soft tissue abnormalities.
[2022-04-13 16:38] LABS: Basophil (Absolute #) 0.01 (0-0.4); Eosinophil % 3.5 % (0.00-5.0); Eosinophil (Absolute #) 0.16 (0-0.5); Hematocrit 46.5 % (42-50); Hemoglobin 14.9 gm/dl (12.5-18.0); Lymphocyte (Absolute #) 2.17 (1.0-4.6); Mean Cell Volume 91.5 fl (78-100); Mean Corpuscular Hemoglobin 29.3 pg (26-32); Mean Platelet Volume 10.9 fl (7.5-11.0); Monocyte (Absolute #) 0.38 (0.0-1.3); Monocytes % 8.2 % (0.0-12.0); Neutrophil % 41.1 % (36.0-66.0); Platelet Count 133 K/mm3 (150-450); Red Blood Count 5.08 M/mm3 (4.1-5.6); Red Cell Distribution Width 14.9 % (11.5-14.0); White Blood Count 4.6 K/mm3 (4.0-10.5)
[2022-04-13 17:14] VITALS: BP 126/92; PULSE 72
[2022-04-13 17:39] VITALS: O2SAT 100
[2022-04-13 19:08] LABS: Appearance CLEAR (CLEAR); Bilirubin NEGATIVE (NEGATIVE); Dipstick done @ ? MAIN LAB; Glucose NEGATIVE (NEGATIVE); Ketones NEGATIVE (NEGATIVE); Nitrite NEGATIVE (NEGATIVE); Protein,Urine Dip NEGATIVE (Negative); RBC NEGATIVE Ery/ul (0-5); Specific Gravity 1.025 (1.005-1.025); Urobilinogen 0.2 mg/dL (0-1)
[2022-04-13 19:18] LABS: Mucus SLIGHT /HPF (NEGATIVE)
[2022-04-13 19:22] LABS: Amphetamine,Urine POSITIVE (NEGATIVE); Barbiturate,Urine NEGATIVE (NEGATIVE); Benzodiazepine,Urine POSITIVE (NEGATIVE); Cocaine,Urine NEGATIVE (NEGATIVE); Methadone,Urine NEGATIVE (NEGATIVE); Opiate,Urine POSITIVE (NEGATIVE); PCP,Urine NEGATIVE (NEGATIVE); THC,Urine POSITIVE (NEGATIVE); Urine Cultured Indicated? NO
== END 2022-04-13 17:48 | disposition left against medical advice (07) ==
LOC: ED 14:53
DX: L03.115 Cellulitis of right lower limb (principal); F19.10 Other psychoactive substance abuse, uncomplicated; I10 Essential (primary) hypertension; Z72.0 Tobacco use
CPT/HCPCS: 36415; 73630; 80053; 80307; 81015; 85025; 99284; G0480

== ENCOUNTER 2022-04-22 23:16 | Emergency (ER) | payer OTHER ==
[2022-04-22 23:28] VITALS: BP 175/99; PULSE 88; O2SAT 96
[2022-04-22] MEDS ORDERED: TYLENOL 325 MG PO ONE (23:32)
[2022-04-22] MEDS ORDERED: BENADRYL 50 MG/ML IV ONE (23:32)
[2022-04-22] MEDS ORDERED: Sodium Chloride 0.9% 1000 ML 1,000 ML IV STA (23:32)
--- NOTE | 2022-04-22 23:43 | ERPHSYRPT ---
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 Slightly hypertensive. Frontal. No falls or trauma. No neurological symptoms. No fever or chills. No signs of meningitis or encephalitis. Patient had recent 7-day hospital stay at the inpatient stress unit in [place]. States he has not started taking his psychiatric medication as an outpatient. Patient's father called EMS tonight for him. He took ibuprofen at home. He did not try any aspirin, Tylenol, other pain reliever. States that he does have a history of infrequent headaches. This is not the worst headache of his life. Timing/Duration: today Quality: aching Head Pain Location: frontal Severity of Pain-Max: mild Severity of Pain-Current: mild Recent Head Trauma: no recent headache/trauma Modifying Factors: Improves With: exposure to light, rest Associated Symptoms: denies symptoms Previous symptoms: no prior history Allergies/Adverse Reactions: No Known Drug Allergies Allergy (Verified 04/13/22 14:55) Hx Tetanus, Diphtheria Vaccination/Date Given: Yes Hx Influenza Vaccination/Date Given: No Hx Pneumococcal Vaccination/Date Given: No Travel Risk - International Travel Have you traveled outside of the country in past 3 weeks: No - Coronavirus Screening Are you exhibiting any of the following symptoms?: No Close contact with a COVID-19 positive Pt in past 14-21 Days: No - Vaccine Status Have you recieved a Covid-19 vaccination: No 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 - Review of Systems Constitutional: No Fever, No Chills Eyes: No Symptoms Ears, Nose, & Throat: No Symptoms Respiratory: No Cough, No Dyspnea Cardiac: No Chest Pain, No Edema, No Syncope Abdominal/Gastrointestinal: No Abdominal Pain, No Nausea, No Vomiting, No Diarrhea Genitourinary Symptoms: No Dysuria Musculoskeletal: No Back Pain, No Neck Pain Skin: No Rash Neurological: Headache, No Dizziness, No Focal Weakness, No Sensory Changes Psychological: No Symptoms Endocrine: No Symptoms All Other Systems: Reviewed and Negative - Past Medical History Pertinent Past Medical History: Yes Neurological History: No Pertinent History, TIA ENT History: Other Cardiac History: Hypertension Respiratory History: No Pertinent History Endocrine Medical History: No Pertinent History Musculoskeletal History: No Pertinent History GI Medical History: No Pertinent History History: No Pertinent History Psycho-Social History: Anxiety, Depression, Other Male Reproductive Disorders: No Pertinent History 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 EARS - Social History Smoking Status: Current every day smoker How long have you smoked: 12 years Exposure to second hand smoke: Yes Alcohol Use: Socially Drug Use: marijuana, methamphetamines, other Patient Lives Alone: No (Father) Significant Family History: no pertinent family hx - Nursing Vital Signs Nursing Vital Signs: Initial Vital Signs Temperature 98.4 F 04/22/22 23:18 Pulse Rate 88 04/22/22 23:18 Respiratory Rate 16 04/22/22 23:18 Blood Pressure 175/99 04/22/22 23:18 O2 Sat by Pulse Oximetry 96 04/22/22 23:18 Pain Scale Pain Intensity 8 - Physical Exam General Appearance: no apparent distress Eye Exam: PERRL/EOMI Ears, Nose, Throat Exam: normal ENT inspection, moist mucous membranes Neck Exam: normal inspection, supple, full range of motion, No meningismus Respiratory Exam: normal breath sounds, lungs clear Cardiovascular Exam: regular rate/rhythm, normal heart sounds Gastrointestinal/Abdominal Exam: soft, No tenderness, No distention Back Exam: normal inspection, normal range of motion Extremity Exam: normal inspection Mental Status Exam: alert, oriented x 3, cooperative 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 Exam: normal hearing, normal speech, PERRL, No facial droop, No facial paresthesias, No facial weakness, No gaze palsy, No hearing deficit (R) Coordination/Gait Exam: normal finger to nose, normal gait, normal cerebellar function, negative Romberg's sign, No abnormal gait, No ABN nose to finger (R), No ABN nose to finger (L) (Full normal neurological exam.) Motor/Sensory Exam: no motor deficit, no sensory deficit, no pronator drift, negative Babinski's sign Skin Exam: normal color, warm, dry, No rash SpO2: 96 - Course Nursing assessment & vital signs reviewed: Yes Ordered Tests: Active Orders 24 hr Category Date Time Status EKG-ER Only STAT Care 04/22/22 23:33 Active HEAD WITHOUT CONTRAST [CT] Stat Exams 04/22/22 23:33 Ordered BMP Stat Lab 04/22/22 23:32 Ordered CBC W DIFF Stat Lab 04/22/22 23:32 Ordered TROPONIN Q3H Lab 04/22/22 23:45 Ordered Medication Summary Generic Name Dose Route Start Last Admin Trade Name Freq PRN Reason Stop Dose Admin Sodium Chloride 1,000 mls @ 999 mls/hr 04/22/22 23:32 Sodium Chloride 0.9% 1000 Ml IV 04/23/22 00:32 .Q1H1M STA Discontinued Medications Generic Name Dose Route Start Last Admin Trade Name Freq PRN Reason Stop Dose Admin Acetaminophen 975 mg 04/22/22 23:32 Acetaminophen 325 Mg Tablet PO 04/22/22 23:33 STAT ONE Diphenhydramine HCl 25 mg 04/22/22 23:32 Diphenhydramine Hcl 50 Mg/Ml Vial IV 04/22/22 23:33 STAT ONE Droperidol 1.25 mg 04/22/22 23:32 Droperidol 5 Mg/2 Ml Vial IV 04/22/22 23:33 STAT ONE - Progress Progress: improved Air Movement: good Progress Note: 04/22/22 23:42 Patient complains of a headache. He also complained of some brief chest pain earlier today. Several hours ago. No falls or trauma. Patient states he also has some high blood pressure. We will obtain a troponin, EKG, basic labs, fluids, migraine cocktail, head CT. Patient has a full normal neurological exam. Therefore less likely to be a TIA or stroke tonight. When I went to reexamine the patient patient had absconded from the emergency department. He had removed his own IV. No labs or imaging was obtained prior to his absconding. Will attempt to call the patient on home phone. We will communicate to him that he is welcome to return here for any new or changing sy mptoms. - Departure Departure Disposition: Home Clinical Impression: Headache Condition: Stable Critical Care Time: No Referrals: JEREMIAH VASQUEZ [Primary Care Provider] - Follow up/PCP as directed Instructions: Headache, Adult (DC) Additional Instructions: Patient absconded from the emergency department without discussion with myself or nursing staff.
== END 2022-04-22 23:38 | disposition left against medical advice (07) ==
LOC: ED 23:16
DX: R51.9 Headache, unspecified (principal); I10 Essential (primary) hypertension; Z72.0 Tobacco use; R07.9 Chest pain, unspecified
CPT/HCPCS: 36000; 99284

== ENCOUNTER 2023-01-03 19:33 | Emergency (ER) | payer OTHER ==
--- NOTE | 2023-01-03 19:37 | ERPHSYRPT ---
- History of Present Illness Time Seen by Provider: 01/03/23 19:37 Source: patient Exam Limitations: no limitations Physician History: This is a 37-year-old white male who is a patient of Dr. Dickens and presents with left foot pain since yesterday. Patient denies any injury. Specifically, the patient's third toe is what hurts the most. I obtained history directly from the patient. Patient has a history of hypertension and TIAs. Patient is a daily smoker of cigarettes. His tetanus is up-to-date. Method of Injury: other (No known injury) Occurred: yesterday (Noticed pain in the left third digit) Quality: constant, aching, burning Severity of Pain-Max: mild (To moderate) Severity of Pain-Current: mild (To moderate) Lower Extremities Pain: 3rd toe: left Modifying Factors: Improves With: movement Associated Symptoms: other (The left third toe hurts when he ambulates) Allergies/Adverse Reactions: No Known Drug Allergies Allergy (Verified 01/03/23 19:48) Hx Tetanus, Diphtheria Vaccination/Date Given: Yes Hx Influenza Vaccination/Date Given: No Hx Pneumococcal Vaccination/Date Given: No Travel Risk - International Travel Have you traveled outside of the country in past 3 weeks: No - Coronavirus Screening Are you exhibiting any of the following symptoms?: No Close contact with a COVID-19 positive Pt in past 14-21 Days: No - Vaccine Status Have you recieved a Covid-19 vaccination: No 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 - Review of Systems Constitutional: No Symptoms Eyes: No Symptoms Ears, Nose, & Throat: No Symptoms Respiratory: No Symptoms Cardiac: No Symptoms Abdominal/Gastrointestinal: No Symptoms Genitourinary Symptoms: No Symptoms Musculoskeletal: No Symptoms Skin: Other (Left third toe pain) Neurological: No Symptoms Psychological: No Symptoms Endocrine: No Symptoms Hematologic/Lymphatic: No Symptoms Immunological/Allergic: No Symptoms All Other Systems: Reviewed and Negative - Past Medical History Pertinent Past Medical History: Yes Neurological History: No Pertinent History, TIA ENT History: Other Cardiac History: Hypertension Respiratory History: No Pertinent History Endocrine Medical History: No Pertinent History Musculoskeletal History: No Pertinent History GI Medical History: No Pertinent History History: No Pertinent History Psycho-Social History: Anxiety, Depression, Other Male Reproductive Disorders: No Pertinent History 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 EARS - Social History Smoking Status: Current every day smoker How long have you smoked: 12 years Exposure to second hand smoke: Yes Alcohol Use: Socially Drug Use: marijuana, methamphetamines, other Patient Lives Alone: No (Father) Significant Family History: no pertinent family hx - Nursing Vital Signs Nursing Vital Signs: Initial Vital Signs Temperature 98.2 F 01/03/23 19:43 Pulse Rate 86 01/03/23 19:43 Respiratory Rate 16 01/03/23 19:43 Blood Pressure 150/81 01/03/23 19:43 O2 Sat by Pulse Oximetry 99 01/03/23 19:43 Pain Scale Pain Intensity 10 - Physical Exam General Appearance: no apparent distress, alert, anxiety Eyes, Ears, Nose, Throat Exam: normal ENT inspection, moist mucous membranes Neck Exam: normal inspection, non-tender, supple, full range of motion Cardiovascular/Respiratory Exam: chest non-tender, no respiratory distress Gastrointestinal/Abdominal Exam: non-tender Back Exam: normal inspection, normal range of motion, No CVA tenderness, No vertebral tenderness Hips Exam: bilateral: non-tender, normal inspection, normal range of motion, no evidence of injury Legs Exam: bilateral leg: non-tender, normal inspection, normal range of motion, no evidence of injury Knees Exam: bilateral knee: non-tender, normal inspection, normal range of motion, no evidence of injury Ankle Exam: bilateral ankle: non-tender, normal inspection, normal range of motion Foot Exam: right foot: non-tender, normal inspection, left foot: normal range of motion, no evidence of injury, pain (Third toe ingrown toenail present.), other (No proximal streaking) Neuro/Tendon Exam: normal sensation, normal motor functions, normal tendon functions Mental Status Exam: alert, oriented x 3, cooperative Skin Exam: normal color, warm, dry SpO2 Interpretation: normal O2 Delivery: Room Air - Course Nursing assessment & vital signs reviewed: Yes - Progress Progress: unchanged Progress Note: 01/03/23 20:10 Medical decision making: This patient's medical issues of low complexity. The primary complaint and medical history was obtained directly from the patient. Physical exam was performed. The above information was used to determine the patient did not require any radiographic studies or laboratory work-up. Patient has onychocryptosis. Based on the above and the patient's diagnosis, we will provide the patient with antibiotic here in the emergency room (amoxicillin) and will give him to take home [place] 5/325. I am also providing the patient with discharge instructions based on the above which will include Tylenol and ibuprofen [id number] for pain control, continued amoxicillin antibiotics, and soaking the foot in warm Epson salts 2-3 times a day. In addition, he is to follow-up with podiatry, Dr. Giordano is recommended to him. We will provide him with the contact information. Counseled pt/family regarding: diagnosis, need for follow-up - Departure Departure Disposition: Home Clinical Impression: Onychocryptosis Condition: Stable Critical Care Time: No Referrals: KIKI DICKENS MD [Primary Care Provider] - Follow up/PCP as directed JUAN A ZARAGOZA DPM [ACTIVE STAFF] - Follow up/PCP as directed Additional Instructions: Soak your left foot in warm Epson salts 2-3 times a day. Continue your antibiotic as prescribed. Use Tylenol and ibuprofen for pain control. Follow- up with Dr. Giordano in his office by phone and schedule an outpatient appointment. Prescriptions: Amoxicillin 500 mg Cap [Amoxil 500 mg] 500 mg PO TID #15 cap
[2023-01-03 19:48] VITALS: O2SAT 99
[2023-01-03] MEDS ORDERED: NORCO 5/325 MG PO ONE (20:14)
[2023-01-03] MEDS ORDERED: AMOXIL 500 MG PO ONE (20:15)
[2023-01-03] MEDS ORDERED: NORCO 5/325 MG ONE (20:24)
[2023-01-03] MEDS ORDERED: Augmentin 500-125 Tablet ONE (20:24)
[2023-01-03] MEDS ORDERED: AMOXIL 500 MG ONE (20:28)
[2023-01-03 20:39] VITALS: BP 135/79; PULSE 80
== END 2023-01-03 20:40 | disposition home or self-care (01) ==
LOC: ED 19:33
DX: L60.0 Ingrowing nail (principal); M79.675 Pain in left toe(s); I10 Essential (primary) hypertension; Z72.0 Tobacco use
CPT/HCPCS: 99281; A9270-GY